=== PATIENT | female | born 2000 | race Caucasian/White ===

== ENCOUNTER 2020-03-31 16:37 | Emergency (ER) | payer OTHER, BC ==
--- NOTE | 2020-03-31 17:58 | XR ---
Result: History: Pain. Comparison: None available. Technique: 3 views of the right ankle. Findings: No acute fracture or dislocation is seen. The visualized osseous structures are in anatomic alignmen t. The talar dome is intact and the ankle mortise is congruent. The joint spaces are preserved. No radiopaque foreign body. Impression: No acute osseous abnormality.
--- NOTE | 2020-03-31 17:59 | XR ---
Result: History: Pain. Comparison: None available. Technique: 4 views of the right wrist. Findings: No acute fracture or dislocation is seen. The visualized osseous structures are in anatomic alignmen t. The joint spaces are preserved. Impression: No acute fracture or dislocation.
--- NOTE | 2020-03-31 18:00 | CT ---
EXAMINATION TYPE: CT brain magda teran con DATE OF EXAM: 03/31/2020 COMPARISON: None available. HISTORY: slip and fall on grease hit head CT DLP: 1630.4 mGycm Automated exposure control for dose reduction was used. TECHNIQUE: CT scan of the head and cervical spine are performed without contrast. FINDINGS: There is no acute intracranial hemorrhage, mass effect, or midline shift identified. The ventricles and sulci are within normal limits in size. The globes are intact and the visualized sin uses are clear. Cervical spine is visualized in its entirety from C1 through upper thoracic levels and demonstrates s atisfactory alignment without evidence of acute fracture or dislocation. Prevertebral soft tissue ap pears within normal limits. The C1-C2 articulation is unremarkable. IMPRESSION: 1. There is no acute fracture or dislocation evident in the cervical spine. 2. No acute intracranial hemorrhage, mass effect, or midline shift is seen.
--- NOTE | 2020-03-31 18:16 | ED ---
General Adult HPI - General Chief complaint: Fall Stated complaint: Fall/IHS/Wrist/Ankle/head injury Time Seen by Provider: 03/31/20 17:03 Source: patient Mode of arrival: ambulatory Limitations: no limitations - History of Present Illness Initial comments: 19-year-old female resents to the emergency department for a chief complaint of fall. Patient states that she was at work when she slipped and fell. Patient hit her head on the ground. She did not lose consciousness. Patient does have slight headache. Denies nausea vomiting. Patient also complaining of mild right wrist and ankle pain. States she can walk on the right ankle but it is somewhat painful. Patient denies any other injuries.Patient has no other complaints at this time including shortness of breath, chest pain, abdominal pain, nausea or vomiting, headache, or visual changes. - Related Data Allergies Allergy/AdvReac Type Severity Reaction Status Date / Time No Known Allergies Allergy Verified 03/31/20 16:53 Review of Systems ROS Statement: Those systems with pertinent positive or pertinent negative responses have been documented in the HPI. ROS Other: All systems not noted in ROS Statement are negative. Past Medical History Past Medical History: No Reported History History of Any Multi-Drug Resistant Organisms: None Reported Past Surgical History: No Surgical Hx Reported Past Psychological History: No Psychological Hx Reported Smoking Status: Never smoker Past Alcohol Use History: None Reported Past Drug Use History: None Reported General Exam - General Exam Comments Initial Comments: Right wrist: Full range of motion of the right wrist over patient does have pain with extension. No scaphoid tenderness. Radial pulses 2+. Capillary refill less than 2 seconds Sensation intact. Some mild tenderness to the posterior right wrist. No edema. [facility] Manager strength out of 5, sensation intact. The right elbow and right shoulder have full range of motion. No tenderness throughout the forearm or humerus. Right ankle: No tenderness to the right foot. Capillary refill less than 2 seconds. Sensation intact. Tenderness to the lateral malleolus of the right ankle. No significant edema or erythema. No tenderness to the proximal tib-fib or thigh. Limitations: no limitations General appearance: alert Head exam: Present: atraumatic (I do not see any evidence of hematomas on the right frontal scalp where patient hit her head.), normal inspection Eye exam: Present: normal appearance, PERRL, EOMI. Absent: scleral icterus, conjunctival injection ENT exam: Present: normal exam, mucous membranes moist Neck exam: Present: normal inspection, full ROM. Absent: tenderness, meningismus, lymphadenopathy Respiratory exam: Present: normal lung sounds bilaterally. Absent: respiratory distress, wheezes, rales, rhonchi, stridor Cardiovascular Exam: Present: regular rate, normal rhythm, normal heart sounds. Absent: systolic murmur, diastolic murmur, rubs, gallop, clicks GI/Abdominal exam: Present: soft, normal bowel sounds. Absent: distended, tenderness, guarding, rebound, rigid Neurological exam: Present: alert, oriented X3, other (GCS 15) Course Vital Signs 03/31/20 16:51 Temperature 98.7 F Pulse Rate 79 Respiratory 16 Rate Blood Pressure 114/65 O2 Sat by Pulse 98 Oximetry Medical Decision Making - Medical Decision Making HPI and physical exam as documented. CT cervical spine shows no acute fracture or dislocation evident. CT brain shows no acute cranial hemorrhage, mass effect, or midline shift. Patient was also complaining of slight ankle pain in the right ankle. Denies any difficulty walking. No acute osseous abnormality noted. X-ray of the right wrist shows no acute fracture or dislocation. No scaphoid tenderness. Right wrist was wrapped in an Roby wrap. Air cast applied to right ankle. Concussion precautions discussed. Patient will take Motrin and Tylenol for pain and follow up with orthopedics if symptoms do not improve in the next 7 days for repeat x-rays. Patient is requesting clearance for work. Disposition Clinical Impression: Fall, Head injury, Ankle pain, right, Wrist pain, right Disposition: HOME SELF-CARE Condition: Good Instructions (If sedation given, give patient instructions): Wrist Injury (ED), Concussion (ED) Additional Instructions: Please take Motrin and Tylenol for pain. Rest ice and elevate the right ankle and wrist. Use Roby wrap and splint as needed. Follow-up with orthopedics if symptoms are not improving within 7 days. Return to the emergency room for any worsening symptoms. Is patient prescribed a controlled substance at d/c from ED?: No Referrals: Noel Mitchell MD [Primary Care Provider] - 1-2 days Anabel Bergman DO [Doctor of Osteopathic Medicine] - 1-2 days Time of Disposition: 18:29
[2020-03-31 19:00] VITALS: BP 119/70; PULSE 97; RESP 18; TEMP 98.4
== END 2020-03-31 19:00 | disposition home or self-care (01) ==
LOC: EC 16:37
DX: S09.90XA Unspecified injury of head, initial encounter (principal); M25.571 Pain in right ankle and joints of right foot; M25.531 Pain in right wrist; W01.0XXA Fall on same level from slipping, tripping and stumbling without subsequent striking against object, initial encounter; Y92.69 Other specified industrial and construction area as the place of occurrence of the external cause; Y99.0 Civilian activity done for income or pay
CPT/HCPCS: 73110; 73610; 72125; 70450; 99284; 29515; L4350

== ENCOUNTER → 2020-04-08 | Outpatient (CLI) | payer BC, OTHER ==
--- NOTE | 2020-04-08 09:48 | XR ---
EXAMINATION TYPE: XR wrist complete RT DATE OF EXAM: 04/08/2020 COMPARISON: NONE HISTORY: 19-year-old female wrist pain after fall TECHNIQUE: 4 views FINDINGS: The radiocarpal and distal radioulnar joint as well as the midcarpal compartment appear intact. On th e navicular view, the scapholunate interval is borderline at 2.0 mm. Otherwise, no acute fracture, musa bluxation, or dislocation is seen. IMPRESSION: 1. Borderline scapholunate interval at 2.0 mm. Correlate for any wrist instability or other clinical findings that would suggest injury to the scapholunate ligament. 2. Otherwise, no acute osseous abnormality seen.
== END | disposition home or self-care (01) ==
LOC: RADXRMAIN 09:11
PROVIDERS: ATTEND Emergency Medicine
DX: S63.501D Unspecified sprain of right wrist, subsequent encounter (principal); M25.531 Pain in right wrist

== ENCOUNTER → 2020-05-05 | Outpatient (CLI) | payer OTHER ==
--- NOTE | 2020-05-05 11:06 | XR ---
EXAMINATION TYPE: XR ankle complete RT DATE OF EXAM: 05/05/2020 COMPARISON: 03/31/2020 HISTORY: Ankle pain, slip and fall TECHNIQUE: Three-view right ankle FINDINGS: No acute fracture or dislocation is evident. Soft tissues are normal. Ankle mortise is inta ct. No significant interval change is evident. Follow-up studies can be performed 7-10 days from acute trauma for continued pain. IMPRESSION: 1. Normal three-view right ankle
== END | disposition home or self-care (01) ==
LOC: RADXRMAIN 10:15
PROVIDERS: ATTEND Emergency Medicine
DX: S93.401D Sprain of unspecified ligament of right ankle, subsequent encounter (principal)

== ENCOUNTER 2020-12-31 09:39 | Observation (INO) | payer BC, OTHER ==
[2020-12-31] MEDS ORDERED: KETOROLAC 15 MG/ML 1 ML VIAL IVP STA (10:19)
[2020-12-31] MEDS ORDERED: SODIUM CHLORIDE 0.9% 1,000 ML IV STA (10:19)
--- NOTE | 2020-12-31 10:35 | ED ---
Abdominal Pain HPI - General Chief Complaint: Abdominal Pain Stated Complaint: abd pain Time Seen by Provider: 12/31/20 10:07 Source: patient, RN notes reviewed Mode of arrival: ambulatory Limitations: no limitations - History of Present Illness Initial Comments: Patient is a 20-year-old female presenting to emergency Department with complaints of abdominal pain, nausea and vomiting over the past 3 days. She states she noticed a stomachache a few days ago, and then started having nausea and vomiting and continued abdominal pain. She describes it as around her mid abdomen with some radiation to the left and lower right side. She denies any previous abdominal surgeries, she denies being . She has been having a few bouts of diarrhea but that is gotten better. She denies any fevers or chills, no chest pain or shortness of breath. She denies any hematuria or dysuria. She has no further complaints. Her vitals are stable upon arrival. - Related Data Home Medications Medication Instructions Recorded Confirmed Levonorgestrel [Kyleena (IUD)] 1 implant VAGINAL [id number] 12/31/20 12/31/20 Previous Rx's Medication Instructions Recorded Acetaminophen [Tylenol] 650 mg PO Q4H #30 tab 01/01/21 Ibuprofen [Motrin] 600 mg PO Q8HR PRN #30 tab 01/01/21 Simethicone 40 mg/0.6 ml Drops 80 mg PO Q6HR PRN #30 ml 01/01/21 [Mylicon Drops] Allergies Allergy/AdvReac Type Severity Reaction Status Date / Time No Known Allergies Allergy Verified 12/31/20 13:00 Review of Systems ROS Statement: Those systems with pertinent positive or pertinent negative responses have been documented in the HPI. ROS Other: All systems not noted in ROS Statement are negative. Past Medical History Past Medical History: No Reported History History of Any Multi-Drug Resistant Organisms: None Reported Past Surgical History: No Surgical Hx Reported Past Psychological History: No Psychological Hx Reported Smoking Status: Never smoker Past Alcohol Use History: None Reported Past Drug Use History: None Reported - Past Family History Mother History Unknown: Yes General Exam - General Exam Comments Initial Comments: GENERAL: Patient is well-developed and well-nourished. Patient is nontoxic and in no acute distress. HEAD: Atraumatic, normocephalic. EYES: Pupils equal round and reactive to light, extraocular movements intact, sclera anicteric, conjunctiva are normal. Eyelids were unremarkable. ENT: Nares patent, oropharynx clear without exudates. Moist mucous membranes. NECK: Normal range of motion, supple without lymphadenopathy or JVD. LUNGS: Unlabored respirations. Breath sounds clear to auscultation bilaterally and equal. No wheezes rales or rhonchi. HEART: Regular rate and rhythm without murmurs, rubs or gallops. ABDOMEN: Soft, tender to palpation around the umbilical area, left and right lower quadrants., normoactive bowel sounds. No guarding, no rebound. No masses appreciated. : Deferred MUSCULOSKELETAL: Normal extremities with adequate strength and normal range of motion, no pitting or edema. No clubbing or cyanosis. NEUROLOGICAL: Patient is alert and oriented x 3. Normal speech, normal gait. PSYCH: Normal mood, normal affect. SKIN: Warm, Dry, normal turgor, no rashes or lesions noted. Limitations: no limitations Course Vital Signs 12/31/20 12/31/20 10:03 13:37 Temperature 98.4 F 97.3 F L Pulse Rate 90 83 Respiratory 16 16 Rate Blood Pressure 118/79 123/79 O2 Sat by Pulse 98 98 Oximetry Medical Decision Making - Medical Decision Making Patient is a 20-year-old female presenting with abdominal pain, nausea, vomiting, diarrhea over the past 3 days. No previous abdominal surgeries, no fevers, her vitals are stable. Labs reveal a normal white count, urine showed evidence of infection. CT of the abdomen shows an appendix that measures 6 mm in upper limits of normal, there is an appendicolith caught the tip of the appendix. Early appendicitis would be difficult to exclude. I discussed this case with Dr. Lynn who agrees to admission. Patient is also in agreement with this plan of care. Case discussed with Dr. Lopez. - Lab Data Result diagrams: 12/31/20 10:49 12/31/20 10:49 Lab Results 12/31/20 12/31/20 12/31/20 Range/Units 10:49 10:49 10:49 WBC 10.5 (3.8-10.6) k/uL RBC 4.87 (3.80-5.40) m/uL Hgb 15.0 (11.4-16.0) gm/dL Hct 44.0 (34.0-46.0) % MCV 90.3 (80.0-100.0) fL MCH 30.7 (25.0-35.0) pg MCHC 34.0 (31.0-37.0) g/dL RDW 12.4 (11.5-15.5) % Plt Count 228 (150-450) k/uL MPV 7.5 Neutrophils % 74 % Lymphocytes % 19 % Monocytes % 4 % Eosinophils % 1 % Basophils % 0 % Neutrophils # 7.8 H (1.3-7.7) k/uL Lymphocytes # 2.0 (1.0-4.8) k/uL Monocytes # 0.4 (0-1.0) k/uL Eosinophils # 0.1 (0-0.7) k/uL Basophils # 0.0 (0-0.2) k/uL Sodium (137-145) mmol/L Potassium (3.5-5.1) mmol/L Chloride (98-107) mmol/L Carbon Dioxide (22-30) mmol/L Anion Gap mmol/L BUN (7-17) mg/dL Creatinine (0.52-1.04) mg/dL Est GFR (CKD-EPI)AfAm (>60 ml/min/1.73 sqM) Est GFR (CKD-EPI)NonAf (>60 ml/min/1.73 sqM) Glucose (74-99) mg/dL Plasma Lactic Acid Román (0.7-2.0) mmol/L Calcium (8.4-10.2) mg/dL Total Bilirubin (0.2-1.3) mg/dL AST (14-36) U/L ALT (4-34) U/L Alkaline Phosphatase (38-126) U/L Total Protein (6.3-8.2) g/dL Albumin (3.5-5.0) g/dL Amylase (30-110) U/L Lipase (23-300) U/L Urine Color Yellow Urine Appearance Cloudy H (Clear) Urine pH 6.0 (5.0-8.0) Ur Specific Notrees 1.027 (1.001-1.035) Urine Protein Trace H (Negative) Urine Glucose (UA) Negative (Negative) Urine Ketones Negative (Negative) Urine Blood Negative (Negative) Urine Nitrite Negative (Negative) Urine Bilirubin Negative (Negative) Urine Urobilinogen 2.0 (<2.0) mg/dL Ur Leukocyte Esterase Large H (Negative) Urine RBC 8 H (0-5) /hpf Urine WBC 7 H (0-5) /hpf Ur Squamous Epith Cells 8 H (0-4) /hpf Amorphous Sediment Rare H (None) /hpf Urine Bacteria Occasional H (None) /hpf Urine Mucus Many H (None) /hpf Urine HCG, Qual Not Detected (Not Detectd) 12/31/20 12/31/20 Range/Units 10:49 10:49 WBC (3.8-10.6) k/uL RBC (3.80-5.40) m/uL Hgb (11.4-16.0) gm/dL Hct (34.0-46.0) % MCV (80.0-100.0) fL MCH (25.0-35.0) pg MCHC (31.0-37.0) g/dL RDW (11.5-15.5) % Plt Count (150-450) k/uL MPV Neutrophils % % Lymphocytes % % Monocytes % % Eosinophils % % Basophils % % Neutrophils # (1.3-7.7) k/uL Lymphocytes # (1.0-4.8) k/uL Monocytes # (0-1.0) k/uL Eosinophils # (0-0.7) k/uL Basophils # (0-0.2) k/uL Sodium 138 (137-145) mmol/L Potassium 4.1 (3.5-5.1) mmol/L Chloride 104 (98-107) mmol/L Carbon Dioxide 23 (22-30) mmol/L Anion Gap 11 mmol/L BUN 15 (7-17) mg/dL Creatinine 0.56 (0.52-1.04) mg/dL Est GFR (CKD-EPI)AfAm >90 (>60 ml/min/1.73 sqM) Est GFR (CKD-EPI)NonAf >90 (>60 ml/min/1.73 sqM) Glucose 104 H (74-99) mg/dL Plasma Lactic Acid Román 1.0 (0.7-2.0) mmol/L Calcium 9.5 (8.4-10.2) mg/dL Total Bilirubin 0.7 (0.2-1.3) mg/dL AST 21 (14-36) U/L ALT 19 (4-34) U/L Alkaline Phosphatase 91 (38-126) U/L Total Protein 6.9 (6.3-8.2) g/dL Albumin 4.6 (3.5-5.0) g/dL Amylase 58 (30-110) U/L Lipase 59 (23-300) U/L Urine Color Urine Appearance (Clear) Urine pH (5.0-8.0) Ur Specific Notrees (1.001-1.035) Urine Protein (Negative) Urine Glucose (UA) (Negative) Urine Ketones (Negative) Urine Blood (Negative) Urine Nitrite (Negative) Urine Bilirubin (Negative) Urine Urobilinogen (<2.0) mg/dL Ur Leukocyte Esterase (Negative) Urine RBC (0-5) /hpf Urine WBC (0-5) /hpf Ur Squamous Epith Cells (0-4) /hpf Amorphous Sediment (None) /hpf Urine Bacteria (None) /hpf Urine Mucus (None) /hpf Urine HCG, Qual (Not Detectd) Disposition Clinical Impression: Acute appendicitis Disposition: ADMITTED IP TO THIS [facility] Condition: Stable Decision Date: 12/31/20 Decision Time: 12:48
[2020-12-31] MEDS: ONDANSETRON 4 MG/2 ML VIAL IVP STA (11:03)
[2020-12-31 11:04] LABS: Basophils % (A) 0 %; Eosinophils # (A) 0.1 k/uL (0-0.7); Eosinophils % (A) 1 %; Lymphocytes % (A) 19 %; MCH 30.7 pg (25.0-35.0); MCV 90.3 fL (80.0-100.0); Mean Platelet Volume 7.5; Monocytes # (A) 0.4 k/uL (0-1.0); Monocytes % (A) 4 %; Neutrophils # (A) 7.8 k/uL (1.3-7.7); Neutrophils % (A) 74 %; Platelet Count 228 k/uL (150-450); RBC 4.87 m/uL (3.80-5.40); RDW 12.4 % (11.5-15.5); WBC 10.5 k/uL (3.8-10.6)
[2020-12-31 11:29] LABS: Amorphous Sediment,Urine Rare /hpf; Appearance,Urine Cloudy (Clear); Bacteria,Urine Occasional /hpf; Bilirubin,Urine Negative (Negative); Blood,Urine Negative (Negative); Color,Urine Yellow; Glucose,Urine (UA) Negative (Negative); Ketones,Urine Negative (Negative); Leukocyte Esterase,Urine Large (Negative); Mucus,Urine Many /hpf; Nitrite,Urine Negative (Negative); Protein,Urine Trace (Negative); RBC,Urine 8 /hpf (0-5); Specific Gravity,Urine 1.027 (1.001-1.035); Squamous Epithelial Cell,Urine 8 /hpf (0-4); WBC,Urine 7 /hpf (0-5)
[2020-12-31 11:59] LABS: ALT 19 U/L (4-34); AST 21 U/L (14-36); African American GFR (CKD) >90 (>60 ml/min/1.73 sqM); Albumin 4.6 g/dL (3.5-5.0); Alkaline Phosphatase 91 U/L (38-126); Amylase 58 U/L (30-110); Anion Gap 11 mmol/L; Blood Urea Nitrogen 15 mg/dL (7-17); Calcium 9.5 mg/dL (8.4-10.2); Carbon Dioxide 23 mmol/L (22-30); Chloride 104 mmol/L (98-107); Glucose 104 mg/dL (74-99); Lipase 59 U/L (23-300); Non-African American GFR(CKD) >90 (>60 ml/min/1.73 sqM); Potassium 4.1 mmol/L (3.5-5.1); Sodium 138 mmol/L (137-145); Total Bilirubin 0.7 mg/dL (0.2-1.3); Total Protein 6.9 g/dL (6.3-8.2)
--- NOTE | 2020-12-31 12:00 | CT ---
EXAMINATION TYPE: CT abdomen pelvis w con DATE OF EXAM: 12/31/2020 COMPARISON: None HISTORY: generalized pain CT DLP: 1395.4 mGycm Automated exposure control for dose reduction was used. CONTRAST: CT scan of the abdomen pelvis is performed with IV Contrast, patient injected with 100 mL of Isovue 3 00. FINDINGS- LUNG BASES- No significant abnormality is appreciated. LIVER/GB-area of low attenuation in the left lobe of the liver next to the ligamentum teres nonspecif ic but likely related to focal area of fatty infiltration. No gallstones. PANCREAS- No gross abnormality is seen. SPLEEN- No gross abnormality is seen. ADRENALS- No gross abnormality is seen. KIDNEYS/BLADDER- no hydronephrosis nephrolithiasis or renal mass. BOWEL-bowel gas pattern nonspecific. Appendix measures 6 mm and there does appear to be a small appen dicolith on coronal image 53.. LYMPH NODES- No greater than 1cm abdominal or pelvic lymph nodes are appreciated. Scattered shotty l ymph nodes are seen in the mesentery. OSSEOUS STRUCTURES- No significant abnormality is seen. OTHER- IUD incidentally noted . Aorta of normal caliber. IMPRESSION- 1. Appendix measures 6 mm and is at the upper limits of normal. However, there is a appendicolith at the tip of the appendix. Early appendicitis would be difficult to exclude correlate clinically. There does not appear to be a sizable amount inflammatory change in the right lower quadrant. Additionally there are scattered shotty lymph nodes in the mesentery correlate for mesenteric adenitis. 2. Localized fatty infiltration left lobe of the liver.
[2020-12-31] MEDS ORDERED: NALOXONE 0.4 MG/ML 1 ML VIAL IV PRN (12:45)
[2020-12-31] MEDS ORDERED: ONDANSETRON 4 MG/2 ML VIAL IVP PRN (12:45)
[2020-12-31] MEDS ORDERED: MORPHINE SULFATE 4 MG/ML SYRINGE IV PRN (12:45)
[2020-12-31] MEDS: SODIUM CHLORIDE 0.9% 1,000 ML IV SCH ×2 (13:25→19:22)
--- NOTE | 2020-12-31 14:40 | P.GSHP ---
History of Present Illness The patient is admitted through ED with abdominal pain. CT showed appendicolith so was admitted for observation. On my arrival the patient requested a different surgeon Past Medical History Past Medical History: No Reported History History of Any Multi-Drug Resistant Organisms: None Reported Past Surgical History: Tonsillectomy Past Anesthesia/Blood Transfusion Reactions: No Reported Reaction Past Psychological History: No Psychological Hx Reported, ADD/ADHD Additional Psychological History / Comment(s): adderall Smoking Status: Never smoker Past Alcohol Use History: None Reported Past Drug Use History: None Reported - Past Family History Mother History Unknown: Yes Medications and Allergies Home Medications Medication Instructions Recorded Confirmed Type Levonorgestrel [Kyleena (IUD)] 1 implant VAGINAL [id number] 12/31/20 12/31/20 History Allergies Allergy/AdvReac Type Severity Reaction Status Date / Time No Known Allergies Allergy Verified 12/31/20 13:00 Surgical - Exam Osteopathic Statement: *. No significant issues noted on an osteopathic structural exam other than those noted in the History and Physical/Consult. Vital Signs Temp Pulse Resp BP Pulse Ox 98.4 F 90 16 118/79 98 12/31/20 10:03 12/31/20 10:03 12/31/20 10:03 12/31/20 10:03 12/31/20 10:03 Results - Labs 12/31/20 10:49 12/31/20 10:49 Abnormal Lab Results - Last 24 Hours (Table) 12/31/20 12/31/20 12/31/20 Range/Units 10:49 10:49 10:49 Neutrophils # 7.8 H (1.3-7.7) k/uL Glucose 104 H (74-99) mg/dL Urine Appearance Cloudy H (Clear) Urine Protein Trace H (Negative) Ur Leukocyte Esterase Large H (Negative) Urine RBC 8 H (0-5) /hpf Urine WBC 7 H (0-5) /hpf Ur Squamous Epith Cells 8 H (0-4) /hpf Amorphous Sediment Rare H (None) /hpf Urine Bacteria Occasional H (None) /hpf Urine Mucus Many H (None) /hpf Diabetes panel 12/31/20 Range/Units 10:49 Sodium 138 (137-145) mmol/L Potassium 4.1 (3.5-5.1) mmol/L Chloride 104 (98-107) mmol/L Carbon Dioxide 23 (22-30) mmol/L BUN 15 (7-17) mg/dL Creatinine 0.56 (0.52-1.04) mg/dL Glucose 104 H (74-99) mg/dL Calcium 9.5 (8.4-10.2) mg/dL AST 21 (14-36) U/L ALT 19 (4-34) U/L Alkaline Phosphatase 91 (38-126) U/L Total Protein 6.9 (6.3-8.2) g/dL Albumin 4.6 (3.5-5.0) g/dL Calcium panel 12/31/20 Range/Units 10:49 Calcium 9.5 (8.4-10.2) mg/dL Albumin 4.6 (3.5-5.0) g/dL Pituitary panel 12/31/20 Range/Units 10:49 Sodium 138 (137-145) mmol/L Potassium 4.1 (3.5-5.1) mmol/L Chloride 104 (98-107) mmol/L Carbon Dioxide 23 (22-30) mmol/L BUN 15 (7-17) mg/dL Creatinine 0.56 (0.52-1.04) mg/dL Glucose 104 H (74-99) mg/dL Calcium 9.5 (8.4-10.2) mg/dL Adrenal panel 12/31/20 Range/Units 10:49 Sodium 138 (137-145) mmol/L Potassium 4.1 (3.5-5.1) mmol/L Chloride 104 (98-107) mmol/L Carbon Dioxide 23 (22-30) mmol/L BUN 15 (7-17) mg/dL Creatinine 0.56 (0.52-1.04) mg/dL Glucose 104 H (74-99) mg/dL Calcium 9.5 (8.4-10.2) mg/dL Total Bilirubin 0.7 (0.2-1.3) mg/dL AST 21 (14-36) U/L ALT 19 (4-34) U/L Alkaline Phosphatase 91 (38-126) U/L Total Protein 6.9 (6.3-8.2) g/dL Albumin 4.6 (3.5-5.0) g/dL Assessment and Plan Plan: Will arrange transfer of admission to hospitalist
--- NOTE | 2020-12-31 16:09 | P.CONS ---
History of Present Illness - Reason for Consult Consult date: 12/31/20 - Chief Complaint Abdominal pain - History of Present Illness 20-year-old woman with obesity class II present with abdominal pain. Patient says that she has been having abdominal pain for 2 days. She denies any fevers, chills, nausea, vomiting, chest pain, palpitations, syncope, presyncope, brenton rtness of breath, cough, dysuria. She does report diarrhea. Patient was seen by surgeon youth corrections officer, Dr. Lynn, however, patient immediately requested a different surgeon as primary. Hospital service was asked to get involved as a customer service consultant and mediary. Dr. Jackson kindly offered to take over primary service tomorrow morning. Patient is afebrile, normotensive, saturating well on room air. Labs and imaging were reviewed. CT of the abdomen/pelvis shows early appendicitis with the fecalith at the tip of the appendix. Review of Systems All Systems reviewed and pertinent positives and negatives noted in HPI, all other symptoms are negative Past Medical History Past Medical History: No Reported History History of Any Multi-Drug Resistant Organisms: None Reported Past Surgical History: Tonsillectomy Past Anesthesia/Blood Transfusion Reactions: No Reported Reaction Past Psychological History: No Psychological Hx Reported, ADD/ADHD Additional Psychological History / Comment(s): adderall Smoking Status: Never smoker Past Alcohol Use History: None Reported Past Drug Use History: None Reported - Past Family History Mother History Unknown: Yes Medications and Allergies Home Medications Medication Instructions Recorded Confirmed Type Levonorgestrel [Kyleena (IUD)] 1 implant VAGINAL [id number] 12/31/20 12/31/20 Histo ry Allergies Allergy/AdvReac Type Severity Reaction Status Date / Time No Known Allergies Allergy Verified 12/31/20 13:00 Physical Exam Osteopathic Statement: *. No significant issues noted on an osteopathic structural exam other than those noted in the History and Physical/Consult. Vitals: Vital Signs Temp Pulse Pulse Resp BP BP Pulse Ox 12/31/20 13:44 98.3 F 69 16 107/70 97 12/31/20 13:37 97.3 F L 83 16 123/79 98 12/31/20 10:03 98.4 F 90 16 118/79 98 Intake and Output 12/31/20 12/31/20 12/31/20 06:59 14:59 22:59 Other: Weight 94.5 kg Gen: awake, alert HEENT: normocephalic, atraumatic, good hearing acuity, moist mucous membranes Resp: good air exchange, breathing comfortably with no accessory muscle use, clear to auscultation bilaterally CVS: good distal perfusion x 4, regular rate and rhythm without murmurs GI: Tender to palpation the right lower quadrant, no rebound, no guarding : no SPT, no CVAT, sheth catheter not present MSK: no pitting edema, no clubbing Neuro: non-focal, moving all extremities Psych: cooperative, euthymic mood Results CBC & Chem 7: 12/31/20 10:49 12/31/20 10:49 Labs: Abnormal Lab Results - Last 24 Hours (Table) 12/31/20 12/31/20 12/31/20 Range/Units 10:49 10:49 10:49 Neutrophils # 7.8 H (1.3-7.7) k/uL Glucose 104 H (74-99) mg/dL Urine Appearance Cloudy H (Clear) Urine Protein Trace H (Negative) Ur Leukocyte Esterase Large H (Negative) Urine RBC 8 H (0-5) /hpf Urine WBC 7 H (0-5) /hpf Ur Squamous Epith Cells 8 H (0-4) /hpf Amorphous Sediment Rare H (None) /hpf Urine Bacteria Occasional H (None) /hpf Urine Mucus Many H (None) /hpf Assessment and Plan Assessment: Appendicitis, acute -Management per primary team -Pain control per primary team -Hold DVT prophylaxis in anticipation of surgery -Nothing by mouth -Zosyn Obesity, class II -Recommend weight loss evaluation outpatient -Diet and exercise counseling Patient is full code Thank you for this consultation. A member of our team is available 09/10 in case of any arising issues or if there are any questions. Please reach out to one of us via perfect serve.
[2020-12-31] MEDS: PIPERACILLIN-TAZOBACTAM 3.375 GM in SODIUM CHLORIDE 0.9% 100 ML IVPB SCH (16:40)
[2020-12-31] MEDS: KETOROLAC 15 MG/ML 1 ML VIAL IVP PRN (19:21)
[2021-01-01] MEDS: PIPERACILLIN-TAZOBACTAM 3.375 GM in SODIUM CHLORIDE 0.9% 100 ML IVPB SCH ×2 (00:22→08:05)
[2021-01-01] MEDS: KETOROLAC 15 MG/ML 1 ML VIAL IVP PRN (08:05)
[2021-01-01] MEDS: SODIUM CHLORIDE 0.9% 1,000 ML IV SCH (08:06)
[2021-01-01 08:11] VITALS: RESP 16
--- NOTE | 2021-01-01 09:38 | P.GSCN ---
History of Present Illness Consult date: 01/01/21 History of present illness: CHIEF COMPLAINT: Right lower quadrant abdominal pain for over 2 to 3 days. HISTORY OF PRESENT ILLNESS: The patient is a previously healthy 20-year-old female who presents with over 2 day history of bilateral lower abdominal pain that is intermittent and crampy dull ache in nature. No reports of prior abdominal pain. She states the intensity of the pain is moderate and comes in intermittent waves. Abdominal pain is somewhat subsided with pain medications. She had further workup demonstrating appendicolith. Patient is admitted for abdominal pain with suspected appendicitis PAST MEDICAL HISTORY: See list and reviewed PAST SURGICAL HISTORY: See list and reviewed CURRENT MEDICATIONS: See list and reviewed ALLERGIES: See list and reviewed SOCIAL HISTORY: See list and reviewed FAMILY HISTORY: See list and reviewed REVIEW OF ORGAN SYSTEMS: CONSTITUTIONAL: Present fever, no chills. BMI 39.4, morbid obesity. HEENT: Denies any trouble with vision, hearing or nosebleeds. No difficulty swallowing. LYMPHATIC: The patient denies any lumps and bumps around the neck. ENDOCRINE: Denies any thyroid disorders. Denies any blood sugar glucose intolerance. RESPIRATORY: Denies shortness of breath including chronic cough. CARDIOVASCULAR: Denies history of chest pain with exertion. GASTROINTESTINAL: Denies regurgitation of bile at night as well as intermittent nausea. No blood in stools. GENITOURINARY: Denies any blood in urine or increased urinary frequency. Last menstrual cycle June 2019 due to intrauterine device. MUSCULOSKELETAL: Denies current joint arthritis. NEUROLOGIC: Denies any numbness or tingling along the distal extremities. No seizure disorders or headaches. PSYCHIATRIC: Denies any depression or suicidal ideation. HEMATOLOGIC: Denies any abnormal bleeding or bruising. PHYSICAL EXAMINATION: GENERAL: A 20-year-old female in no acute distress. Pleasant. HEENT: No sclera icterus. Extraocular movements grossly intact. Moist buccal mucosa. Head is atraumatic, normocephalic. Hears conversational speech. No nasal drainage. NECK: Supple without lymphadenopathy. No JV distention. CHEST: Non-labored respirations and equal bilateral excursions. CARDIOVASCULAR: Regular rate and rhythm. Palpable 2+ radial pulses. ABDOMEN: Protuberant, soft, increased tenderness right lower quadrant versus left lower quadrant. No diffuse peritonitis. MUSCULOSKELETAL: No clubbing, cyanosis or edema. NEUROLOGIC: No focal or lateralizing signs. PSYCH: Flat affect. Alert and oriented to person, place and time. SKIN: Well perfused. Good skin turgor. LABS: Reviewed. White blood cell count normal at 10.5. Left shift with elevated neutrophils are 0.8. COVID-19 negative. STUDIES: CT of the abdomen and pelvis with IV contrast independently reviewed demonstrating appendicolith along the tip of the appendix right lower quadrant. Decompression of the descending colon with questionable wall thickening. No gross inflammatory changes noted. Intrauterine device identified. This is my independent interpretation. REPORT: CT of the abdomen and pelvis report confirms appendicolith. Early appendicitis cannot be excluded. Possible mesenteric adenitis identified. Fatty liver identified. ASSESSMENT: 1. Bilateral lower abdominal pain, right greater than left 2. Abnormal computed tomography scan for appendicolith and mesenteric adenitis 3. Morbid obesity due to excess calories, BMI 39.4 4. Fatty liver disease 5. Neutrophilia PLAN: 1. I reviewed options including surgical intervention with appendectomy as an appendicolith is present versus IV antibiotics versus nothing at all. Patient's mother was on the telephone guiding the patient's decision. Patient and mother elected for appendectomy. 2. Robotic appendectomy described. 3. Bilateral SCDs. 4. Continue IV antibiotics for pre-existing left shift, neutrophilia Thank you very much for allowing me to participate in the care of your patient. Past Medical History Past Medical History: No Reported History History of Any Multi-Drug Resistant Organisms: None Reported Past Surgical History: Tonsillectomy Past Anesthesia/Blood Transfusion Reactions: No Reported Reaction Past Psychological History: No Psychological Hx Reported, ADD/ADHD Additional Psychological History / Comment(s): adderall Smoking Status: Never smoker Past Alcohol Use History: None Reported Past Drug Use History: None Reported - Past Family History Mother History Unknown: Yes Medications and Allergies Home Medications Medication Instructions Recorded Confirmed Type Levonorgestrel [Kyleena (IUD)] 1 implant VAGINAL [id number] 12/31/20 12/31/20 History Allergies Allergy/AdvReac Type Severity Reaction Status Date / Time No Known Allergies Allergy Verified 12/31/20 13:00 Surgical - Exam Vital Signs Temp Pulse Resp BP Pulse Ox 98.4 F 90 16 118/79 98 12/31/20 10:03 12/31/20 10:03 12/31/20 10:03 12/31/20 10:03 12/31/20 10:03 Results - Labs 12/31/20 10:49 12/31/20 10:49 Abnormal Lab Results - Last 24 Hours (Table) 12/31/20 12/31/20 12/31/20 Range/Units 10:49 10:49 10:49 Neutrophils # 7.8 H (1.3-7.7) k/uL Glucose 104 H (74-99) mg/dL Urine Appearance Cloudy H (Clear) Urine Protein Trace H (Negative) Ur Leukocyte Esterase Large H (Negative) Urine RBC 8 H (0-5) /hpf Urine WBC 7 H (0-5) /hpf Ur Squamous Epith Cells 8 H (0-4) /hpf Amorphous Sediment Rare H (None) /hpf Urine Bacteria Occasional H (None) /hpf Urine Mucus Many H (None) /hpf Diabetes panel 12/31/20 Range/Units 10:49 Sodium 138 (137-145) mmol/L Potassium 4.1 (3.5-5.1) mmol/L Chloride 104 (98-107) mmol/L Carbon Dioxide 23 (22-30) mmol/L BUN 15 (7-17) mg/dL Creatinine 0.56 (0.52-1.04) mg/dL Glucose 104 H (74-99) mg/dL Calcium 9.5 (8.4-10.2) mg/dL AST 21 (14-36) U/L ALT 19 (4-34) U/L Alkaline Phosphatase 91 (38-126) U/L Total Protein 6.9 (6.3-8.2) g/dL Albumin 4.6 (3.5-5.0) g/dL Calcium panel 12/31/20 Range/Units 10:49 Calcium 9.5 (8.4-10.2) mg/dL Albumin 4.6 (3.5-5.0) g/dL Pituitary panel 12/31/20 Range/Units 10:49 Sodium 138 (137-145) mmol/L Potassium 4.1 (3.5-5.1) mmol/L Chloride 104 (98-107) mmol/L Carbon Dioxide 23 (22-30) mmol/L BUN 15 (7-17) mg/dL Creatinine 0.56 (0.52-1.04) mg/dL Glucose 104 H (74-99) mg/dL Calcium 9.5 (8.4-10.2) mg/dL Adrenal panel 12/31/20 Range/Units 10:49 Sodium 138 (137-145) mmol/L Potassium 4.1 (3.5-5.1) mmol/L Chloride 104 (98-107) mmol/L Carbon Dioxide 23 (22-30) mmol/L BUN 15 (7-17) mg/dL Creatinine 0.56 (0.52-1.04) mg/dL Glucose 104 H (74-99) mg/dL Calcium 9.5 (8.4-10.2) mg/dL Total Bilirubin 0.7 (0.2-1.3) mg/dL AST 21 (14-36) U/L ALT 19 (4-34) U/L Alkaline Phosphatase 91 (38-126) U/L Total Protein 6.9 (6.3-8.2) g/dL Albumin 4.6 (3.5-5.0) g/dL Assessment and Plan (1) Appendicolith Current Visit: Yes Status: Acute Code(s): K38.9 - DISEASE OF APPENDIX, UNSPECIFIED SNOMED Code(s): 00736159 (2) Morbid obesity due to excess calories Current Visit: Yes Status: Acute Code(s): E66.01 - MORBID (SEVERE) OBESITY DUE TO EXCESS CALORIES SNOMED Code(s): 406334765 (3) BMI 39.0-39.9,adult Current Visit: Yes Status: Acute Code(s): Z68.39 - BODY MASS INDEX [BMI] 39.0-39.9, ADULT SNOMED Code(s): 678027808 (4) Fatty liver disease, nonalcoholic Current Visit: Yes Status: Acute Code(s): K76.0 - FATTY (CHANGE OF) LIVER, NOT ELSEWHERE CLASSIFIED SNOMED Code(s): 833165223 (5) Mesenteric adenitis Current Visit: Yes Status: Acute Code(s): I88.0 - NONSPECIFIC MESENTERIC LYMPHADENITIS SNOMED Code(s): 97150505 (6) Neutrophilia Current Visit: Yes Status: Acute Code(s): D72.9 - DISORDER OF WHITE BLOOD CELLS, UNSPECIFIED SNOMED Code(s): 483041277 (7) Intrauterine device Current Visit: Yes Status: Acute Code(s): Z97.5 - PRESENCE OF (INTRAUTERINE) CONTRACEPTIVE DEVICE SNOMED Code(s): 179409395 (8) Acute appendicitis Current Visit: Yes Status: Acute Code(s): K35.80 - UNSPECIFIED ACUTE APPENDICITIS SNOMED Code(s): 01382469
[2021-01-01] MEDS ORDERED: ACETAMINOPHEN TAB 500 MG TAB PO STA (09:42)
[2021-01-01] MEDS ORDERED: SCOPOLAMINE 1.5MG/72HR PATCH TRANSDERM STA (09:42)
[2021-01-01] MEDS ORDERED: HEPARIN SODIUM,PORCINE/PF 5,000 UNIT/0.5 ML SYRINGE SQ SCH (10:00)
[2021-01-01] MEDS: ONDANSETRON 4 MG/2 ML VIAL IVP STA (10:59)
[2021-01-01] MEDS ORDERED: DEXAMETHASONE SOD PHOSPHATE 4 MG/ML 1 ML VIAL IV ONE (10:59)
[2021-01-01] MEDS ORDERED: IV FLUID CONTINUATION 1,000 ML IV ONE (11:00)
[2021-01-01] MEDS ORDERED: SCOPOLAMINE 1.5MG/72HR PATCH TRANSDERM ONE (11:05)
[2021-01-01] MEDS ORDERED: NEOSTIGMINE 1 MG/ML 10 ML VIAL ONE (11:24)
[2021-01-01] MEDS ORDERED: PROPOFOL 10 MG/ML 20 ML VIAL IV ONE (11:24)
[2021-01-01] MEDS ORDERED: fentaNYL (PF) 50 MCG/ML 2 ML AMP ONE (11:24)
[2021-01-01] MEDS ORDERED: GLYCOPYRROLATE 0.2 MG/ML 2 ML VIAL ONE (11:24)
[2021-01-01] MEDS ORDERED: LIDOCAINE 1% INJ 10MG/ML (20 ML MDV) ONE (11:24)
[2021-01-01] MEDS ORDERED: SUCCINYLCHOLINE CHLORIDE 100 MG/5 ML SYR IV ONE (11:24)
[2021-01-01] MEDS ORDERED: ROCURONIUM 10 MG/ML (5 ML VIAL) IV ONE (11:24)
[2021-01-01] MEDS ORDERED: MIDAZOLAM 2 MG/2 ML VIAL ONE (11:24)
[2021-01-01] MEDS ORDERED: LIDOCAINE 1%-EPI 1:100,000 20 ML VIAL SQ ONE (11:43)
[2021-01-01 12:29] VITALS: TEMP 97.8
[2021-01-01] MEDS ORDERED: ACETAMINOPHEN TAB 325 MG TAB PO SCH (12:30)
[2021-01-01] MEDS ORDERED: LACTATED RINGERS 1,000 ML IV ONE (12:34)
--- NOTE | 2021-01-01 12:43 | P.OP ---
Date of Procedure: 01/01/21 Description of Procedure: SURGEON: KATHERINE CHAKRABORTY MD Preoperative Diagnosis: 1. Right lower quadrant abdominal pain 2. Left lower quadrant abdominal pain including periumbilical pain 3. Abnormal CT for appendicolith 4. Acute appendicitis 5. Morbid obesity due to excess calories, BMI 39.4 Postoperative Diagnosis: 1. Right lower quadrant abdominal pain 2. Left lower quadrant abdominal pain including periumbilical pain 3. Abnormal CT for appendicolith 4. Acute appendicitis 5. Morbid obesity due to excess calories, BMI 39.4 6. Small bowel Meckel's diverticulum at ileum Procedure(s) Performed: 1. Robotic-assisted daVinci Xi laparoscopic appendectomy 2. Robotic-assisted daVinci Xi laparoscopic small bowel resection of Meckel's diverticulum Anesthesia: GETA, local Estimated Blood Loss (ml): 5 Pathology: other (appendix and Meckel's diverticulum) Condition: stable Disposition: floor Operative Findings: 1. Dilated tip of appendix with appendicolith 2. No creeping mesenteric fat or signs of small bowel Crohn's disease 3. Cecum unremarkable 4. Identification of Meckel's diverticulum consistent with abdominal pain and consent obtained from mother for excision. 5. Meckel's diverticulum of 2 inches identified within 2 feet of the ileocecal valve INDICATIONS: The patient is a 20-year-old male who presents with 2-3 day of periumbilical pain including bilateral lower abdominal pain. She presented with leukocytosis. Diagnostic studies demonstrated appendicolith. Benefits and risks, including infection, open surgery, and bleeding for additional surgery was discussed at length. Informed consent was obtained. All questions of the patient and family were answered. DESCRIPTION: The patient was transferred to the operating room and placed in supine position. The patient had previously voided. The abdomen was then prepped and draped in standard sterile fashion as Ioban was placed along the abdomen to minimize any contamination of skin floor. After a timeout protocol was performed, attention was then brought to the left upper quadrant whereby a 0 degree 5 mm laparoscopic trocar entry was performed. The abdominal cavity was entered and insufflated to 12 mmHg pressure, which was tolerated well. Diagnostic laparoscopy demonstrated no injury to bowel, viscera or mesentery. Next a robotic 8-mm trocar was placed along the left lower quadrant, 10-cm lateral to the midline. A 12 mm port was placed along the left upper quadrant and another 8-mm port left lateral abdominal wall. Ports were placed 8 cm apart from each other including 15-20 cm away from the target anatomy of the right pelvis. The patient was then placed in Trendelenburg position, at least 7 down and right side up at least 7. The robotic da Jayna XI system was primed and docked from the left side of the patient. Using atraumatic graspers and vessel sealer, the robotic system was docked and primed as described. Instruments were interchanged by the records management assistant including graspers, robotic stapler and vessel sealer. Next, attention was brought to identify the cecum. A systematic view within the abdominal cavity was started with the small bowel where Meckel's diverticulum at the umbilical area was identified 2 feet proximal to the ileocecal valve. No creeping mesenteric fat or signs of Crohn's disease of the small bowel was found. The base of the cecum was unremarkable. No inguinal hernias were identified. The appendix tip was dilated with appendicolith identified along the right lower quadrant. No perforation was identified. The appendix was dissected free with division of the mesial appendix using vessel sealer. Blue 45 mm robotic staple loads were fired along the base of the appendix. The staple line was hemostatic. With the finding of Meckel's diverticulum including patient's area of abdominal pain, I went to the patient's mother for additional consent for excision of her Meckel's diverticulum. Benefits and risks of diverticulum excision was described with intraoperative images reviewed and education of Meckel's diverticulum. Mother also gives additional history of pre-existing intermittent abdominal pain in the past consistent with symptomatic Meckel's diverticulum. After initial informed consent, I sat at the console. The diverticulum was prepared for excision using 45 mm blue robotic staple load. The diverticulum was excised across its base and hemostatic. Specimens of the appendix and diverticulum were placed in the Endo Catch bag by the records management assistant. Hemostasis was checked prior to undocking the robot. The robot was undocked. I re-scrubbed into the case. The specimen was removed from the abdominal cavity with an Endo Catch bag through the 12 mm trocar at the left upper quadrant. All instruments and pneumoperitoneum were evacuated from the abdominal cavity. Local anesthetic was infiltrated to all wounds for postop analgesia. All incisions were also cleansed with diluted hydrogen peroxide. The incisions were closed with 4-0 Monocryl. Exofin glue was applied to the rest of the skin incisions. The patient had tolerated the procedure well. The patient was extubated successfully. The patient was transferred to the postanesthesia care unit in stable condition. Intraoperative findings including images were reviewed with the patient's family were pleased with the level of care.
[2021-01-01] MEDS ORDERED: SIMETHICONE 40 MG/0.6 ML DROPS 2,000 MG/30 ML BOTTLE PO SCH (13:30)
[2021-01-01 14:27] VITALS: BP 117/80; PULSE 90
--- NOTE | 2021-01-01 18:53 | P.DS ---
Providers Date of admission: 12/31/20 12:52 Expected date of discharge: 01/01/21 Attending physician: Brando Bush MD Consults: 12/31/20 15:24 Consult Physician Routine Consulting Provider: Camila Jackson Consult Reason/Comments: appendicitis Do you want consulting provider notified?: Already Contacted 12/31/20 15:47 Consult Physician Routine Consulting Provider: Brando Bush Consult Reason/Comments: appendicitis medical management Do you want consulting provider notified?: Already Contacted 01/01/21 09:42 Consult Physician Routine Consulting Provider: [facility] Consult Reason/Comments: [facility] Do you want consulting provider notified?: Yes Primary care physician: Noel Mitchell - Discharge Diagnosis(es) (1) Appendicolith Current Visit: Yes Status: Acute (2) Morbid obesity due to excess calories Current Visit: Yes Status: Acute (3) BMI 39.0-39.9,adult Current Visit: Yes Status: Acute (4) Fatty liver disease, nonalcoholic Current Visit: Yes Status: Acute (5) Mesenteric adenitis Current Visit: Yes Status: Acute (6) Neutrophilia Current Visit: Yes Status: Acute (7) Intrauterine device Current Visit: Yes Status: Acute (8) Acute appendicitis Current Visit: Yes Status: Acute (9) Meckel diverticulum Current Visit: Yes Status: Acute Hospital Course: Postoperative Diagnosis: 1. Right lower quadrant abdominal pain 2. Left lower quadrant abdominal pain including periumbilical pain 3. Abnormal CT for appendicolith 4. Acute appendicitis 5. Morbid obesity due to excess calories, BMI 39.4 6. Small bowel Meckel's diverticulum at ileum COURSE: The patient is a 20-year-old male who presented with 2-3 day of periumbilical pain including bilateral lower abdominal pain. CT of the abdomen and pelvis to the short appendicolith and possible appendicitis. Robotic appendectomy was performed with features of Meckel's diverticulum. Postoperatively after appendectomy and excision of diverticulum, patient reported periumbilical pain and bilateral lower abdominal pain had completely resolved. Patient was stable for discharge. Procedures: Procedure(s) Performed: 1. Robotic-assisted daVinci Xi laparoscopic appendectomy 2. Robotic-assisted daVinci Xi laparoscopic small bowel resection of Meckel's diverticulum Anesthesia: GETA, local Estimated Blood Loss (ml): 5 Pathology: other (appendix and Meckel's diverticulum) Condition: stable Disposition: floor Operative Findings: 1. Dilated tip of appendix with appendicolith 2. No creeping mesenteric fat or signs of small bowel Crohn's disease 3. Cecum unremarkable 4. Identification of Meckel's diverticulum consistent with abdominal pain and consent obtained from mother for excision. 5. Meckel's diverticulum of 2 inches identified within 2 feet of the ileocecal valve INDICATIONS: The patient is a 20-year-old male who presents with 2-3 day of periumbilical pain including bilateral lower abdominal pain. She presented with leukocytosis. Diagnostic studies demonstrated appendicolith. Benefits and risks, including infection, open surgery, and bleeding for additional surgery was discussed at length. Informed consent was obtained. All questions of the patient and family were answered. Patient Condition at Discharge: Stable Plan - Discharge Summary Discharge Rx Participant: No New Discharge Prescriptions: New Ibuprofen [Motrin] 600 mg PO Q8HR PRN #30 tab PRN Reason: Pain Simethicone 40 mg/0.6 ml Drops [Mylicon Drops] 80 mg PO Q6HR PRN #30 ml PRN Reason: Abdominal Distention Acetaminophen [Tylenol] 650 mg PO Q4H #30 tab Continue Levonorgestrel [Kyleena (IUD)] 1 implant VAGINAL [id number] Discharge Medication List Levonorgestrel [Kyleena (IUD)] 1 implant VAGINAL [id number] 12/31/20 [History] Acetaminophen [Tylenol] 650 mg PO Q4H #30 tab 01/01/21 [Rx] Ibuprofen [Motrin] 600 mg PO Q8HR PRN #30 tab 01/01/21 [Rx] Simethicone 40 mg/0.6 ml Drops [Mylicon Drops] 80 mg PO Q6HR PRN #30 ml 01/01/21 [Rx] Follow up Appointment(s)/Referral(s): Noel Mitchell MD [Primary Care Provider] - 1-2 days Camila Jackson MD [STAFF PHYSICIAN] - 01/04/21 (Please call for appointment time) Patient Instructions/Handouts: Appendicitis (GEN), Laparoscopic Appendectomy (DC) Activity/Diet/Wound Care/Special Instructions: No lifting over 10 pounds in 2 weeks until January 15. July shower. No bath tub soaks for two weeks until January 15. Diet as tolerated. Use Tylenol, simethicone and ibuprofen or Aleve scheduled for the next 24-48 ho urs for best pain relief. Use ice along incisions for today to prevent swelling. Discharge Disposition: HOME SELF-CARE
== END 2021-01-01 16:15 | disposition home or self-care (01) ==
LOC: EC 09:39 → 6PED 12:52
PROVIDERS: ADMIT Internal Medicine; ATTEND Internal Medicine
DX: K35.80 Unspecified acute appendicitis (principal); Q43.0 Meckel's diverticulum (displaced) (hypertrophic); K38.1 Appendicular concretions; K76.0 Fatty (change of) liver, not elsewhere classified; I88.0 Nonspecific mesenteric lymphadenitis; F90.9 Attention-deficit hyperactivity disorder, unspecified type; E66.01 Morbid (severe) obesity due to excess calories; Z68.39 Body mass index [BMI] 39.0-39.9, adult; Z20.822 Contact with and (suspected) exposure to COVID-19; Z79.899 Other long term (current) drug therapy; Z97.5 Presence of (intrauterine) contraceptive device; Z71.3 Dietary counseling and surveillance
CPT/HCPCS: 44238; 44970; S2900; 36415; 74177; 80053; 81001; 81025; 82150; 83605; 83690; 85025; 87635; 88304; 96374; 96375; 96376; 99285

== ENCOUNTER 2021-02-17 23:01 | Emergency (ER) | payer BC ==
[2021-02-17 23:21] VITALS: TEMP 98.7
--- NOTE | 2021-02-18 00:23 | XR ---
EXAMINATION TYPE: XR chest 1V portable DATE OF EXAM: 02/18/2021 COMPARISON: NONE HISTORY: Chest pain TECHNIQUE: Single view FINDINGS: Heart and mediastinum are normal. Lungs are clear. Diaphragm is normal. Bony thorax is inta ct. IMPRESSION: Normal chest
[2021-02-18] MEDS ORDERED: ONDANSETRON 4 MG/2 ML VIAL IVP STA (01:26)
[2021-02-18] MEDS ORDERED: KETOROLAC 30 MG/ML 1 ML VIAL IVP STA (01:26)
[2021-02-18 02:01] LABS: Appearance,Urine Clear (Clear); Bacteria,Urine Rare /hpf; Bilirubin,Urine Negative (Negative); Blood,Urine Negative (Negative); Color,Urine Yellow; Glucose,Urine (UA) Negative (Negative); Ketones,Urine Negative (Negative); Leukocyte Esterase,Urine Small (Negative); Mucus,Urine Many /hpf; Nitrite,Urine Negative (Negative); Protein,Urine Negative (Negative); RBC,Urine 11 /hpf (0-5); Specific Gravity,Urine 1.026 (1.001-1.035); Squamous Epithelial Cell,Urine 2 /hpf (0-4); Urobilinogen,Urine <2.0 mg/dL (<2.0); WBC,Urine 2 /hpf (0-5)
[2021-02-18 02:03] LABS: Basophils % (A) 0 %; Eosinophils # (A) 0.2 k/uL (0-0.7); Eosinophils % (A) 2 %; HCT 41.2 % (34.0-46.0); HGB 14.3 gm/dL (11.4-16.0); Lymphocytes # (A) 2.2 k/uL (1.0-4.8); Lymphocytes % (A) 16 %; MCH 30.9 pg (25.0-35.0); MCHC 34.9 g/dL (31.0-37.0); MCV 88.6 fL (80.0-100.0); Mean Platelet Volume 7.8; Monocytes # (A) 0.7 k/uL (0-1.0); Monocytes % (A) 5 %; Neutrophils # (A) 10.6 k/uL (1.3-7.7); Neutrophils % (A) 76 %; Platelet Count 212 k/uL (150-450); RBC 4.64 m/uL (3.80-5.40); RDW 12.2 % (11.5-15.5); WBC 13.9 k/uL (3.8-10.6)
--- NOTE | 2021-02-18 02:18 | ED ---
Chest Pain HPI - General Chief Complaint: Chest Pain Stated Complaint: Chest pain, vomiting Time Seen by Provider: 02/18/21 01:03 Source: patient, RN notes reviewed, old records reviewed Mode of arrival: ambulatory Limitations: no limitations - History of Present Illness Initial Comments: Patient is a 20-year-old female presenting to emergency Department with complaints of chest pain that began about a few weeks ago. Patient states over the past few days she is also become nauseous, body aches, abdominal pain and just generalized illness. Patient had an appendectomy about a month and a half ago with Dr. Garner. She denies any shortness of breath, no fevers. She has no history of blood clots, no recent travel. She denies being . Patient denies any dysuria or frequency. She has no further complaints. Patient's vital signs are stable upon arrival. - Related Data Home Medications Medication Instructions Recorded Confirmed Levonorgestrel [Kyleena (IUD)] 1 implant VAGINAL [id number] 12/31/20 12/31/20 Previous Rx's Medication Instructions Recorded Acetaminophen [Tylenol] 650 mg PO Q4H #30 tab 01/01/21 Ibuprofen [Motrin] 600 mg PO Q8HR PRN #30 tab 01/01/21 Simethicone 40 mg/0.6 ml Drops 80 mg PO Q6HR PRN #30 ml 01/01/21 [Mylicon Drops] Allergies Allergy/AdvReac Type Severity Reaction Status Date / Time No Known Allergies Allergy Verified 02/17/21 23:21 Review of Systems ROS Statement: Those systems with pertinent positive or pertinent negative responses have been documented in the HPI. ROS Other: All systems not noted in ROS Statement are negative. EKG Findings - EKG Comments: EKG Findings:: Normal sinus rhythm, cannot rule out anterior infarct, age undetermined, no signs of acute ST segment elevation. Ventricular rate 97, OK interval 124, QT 348. Past Medical History Past Medical History: No Reported History History of Any Multi-Drug Resistant Organisms: None Reported Past Surgical History: Appendectomy Past Anesthesia/Blood Transfusion Reactions: No Reported Reaction Past Psychological History: ADD/ADHD Smoking Status: Never smoker Past Alcohol Use History: None Reported Past Drug Use History: None Reported - Past Family History Mother History Unknown: Yes General Exam - General Exam Comments Initial Comments: GENERAL: Patient is well-developed and well-nourished. Patient is nontoxic and in no acute distress. HEAD: Atraumatic, normocephalic. EYES: Pupils equal round and reactive to light, extraocular movements intact, sclera anicteric, conjunctiva are normal. Eyelids were unremarkable. ENT: Nares patent, oropharynx clear without exudates. Moist mucous membranes. NECK: Normal range of motion, supple without lymphadenopathy or JVD. LUNGS: Unlabored respirations. Breath sounds clear to auscultation bilaterally and equal. No wheezes rales or rhonchi. HEART: Regular rate and rhythm without murmurs, rubs or gallops. ABDOMEN: Soft, mild tenderness to left-sided abdomen, suprapubic, normoactive bowel sounds. No guarding, no rebound. No masses appreciated. : Deferred MUSCULOSKELETAL: Normal extremities with adequate strength and normal range of motion, no pitting or edema. No clubbing or cyanosis. NEUROLOGICAL: Patient is alert and oriented x 3. Symmetrical smile. Normal speech, normal gait. PSYCH: Normal mood, normal affect. SKIN: Warm, Dry, normal turgor, no rashes or lesions noted. Limitations: no limitations Course Vital Signs 02/17/21 02/18/21 23:18 00:54 Temperature 98.7 F Pulse Rate 101 H 87 Respiratory 22 18 Rate Blood Pressure 116/82 117/61 O2 Sat by Pulse 97 97 Oximetry Chest Pain [facility] Patient is a 20-year-old female here with chest pains over the past couple weeks, increase in nausea, abdominal pain, generalized is not feeling well. She had appendectomy about a month and half ago. Her vitals are stable today. Labs are unremarkable including a normal troponin, negative d-dimer. Urine reveals no evidence of infection, hCG is negative,: It is negative. Patient was given Toradol and Zofran has been resting comfortably. Upon recheck, patient was sleeping. She states her symptoms have improved. I discussed these findings with her. Her symptoms could be from some reflux, recommend continuing with the omeprazole. If symptoms persist she can follow up with her primary care as well as her surgeon. Patient is agreeable to this plan of care. She is stable for discharge. Case discussed with Dr. Calhoun. Disposition Clinical Impression: Atypical chest pain, Abdominal pain Disposition: HOME SELF-CARE Condition: Stable Instructions (If sedation given, give patient instructions): Gastroesophageal Reflux Disease (ED) Additional Instructions: Please return to the Emergency Department if symptoms worsen or any other concerns. Please continue with omeprazole. Please follow-up with your primary care if symptoms persist as well as her surgeon. Is patient prescribed a controlled substance at d/c from ED?: No Referrals: Noel Mitchell MD [Primary Care Provider] - 1-2 days Time of Disposition: 03:25
[2021-02-18 02:29] LABS: ALT 22 U/L (4-34); AST 25 U/L (14-36); African American GFR (CKD) >90 (>60 ml/min/1.73 sqM); Albumin 4.2 g/dL (3.5-5.0); Alkaline Phosphatase 81 U/L (38-126); Anion Gap 8 mmol/L; Blood Urea Nitrogen 18 mg/dL (7-17); Calcium 8.4 mg/dL (8.4-10.2); Carbon Dioxide 25 mmol/L (22-30); Chloride 104 mmol/L (98-107); Glucose 88 mg/dL (74-99); Lipase 84 U/L (23-300); Non-African American GFR(CKD) >90 (>60 ml/min/1.73 sqM); Potassium 3.5 mmol/L (3.5-5.1); Sodium 137 mmol/L (137-145); Total Bilirubin 0.7 mg/dL (0.2-1.3); Total Protein 6.3 g/dL (6.3-8.2)
[2021-02-18 03:44] VITALS: BP 131/78; PULSE 78; RESP 16
== END 2021-02-18 03:44 | disposition home or self-care (01) ==
LOC: EC 23:01
DX: R07.89 Other chest pain (principal); R10.9 Unspecified abdominal pain; F90.9 Attention-deficit hyperactivity disorder, unspecified type
CPT/HCPCS: 36415; 93005; 85379; 80053; 83605; 83690; 84484; 85025; 81001; 81025; 87635; 71045; 99285; 96374; 96375; J2405; J1885

== ENCOUNTER → 2021-02-23 | Outpatient (CLI) | payer BC ==
--- NOTE | 2021-02-23 17:52 | CT ---
EXAMINATION TYPE: CT abdomen pelvis wo con DATE OF EXAM: 02/23/2021 COMPARISON: 12/31/2020 HISTORY: Mid abdominal pain post appendectomy on 01/01/21, nausea and vomiting CT DLP: 892.8 mGycm Automated exposure control for dose reduction was used. Images obtained from the diaphragm to the floor the pelvis with no contrast. Lung bases are clear. There is no pleural effusion. Heart size is normal. There is no pericardial eff usion. Liver spleen stomach pancreas gallbladder appear intact. The bile ducts are not dilated. There is no adrenal mass. Kidneys have normal size and contour. There is no hydronephrosis. Ureters a re not dilated. There is no retroperitoneal adenopathy. Bladder distends smoothly. There is IUD in th e uterine fundus. Uterus is anteverted. There is no inguinal hernia. There is no evidence of pelvic m ass. There is no free fluid in the pelvis. There are clips from appendectomy. There is no mesenteric edema. There is no ascites or free air. The re is no bowel obstruction. The lumbar vertebra have normal alignment. Posterior elements are intact. There is no compression fra cture. The bony pelvis is intact. The hip joints are intact. Sacroiliac joints are intact. IMPRESSION: No acute abnormality of the abdomen pelvis. No adverse change compared to old exam.
== END | disposition home or self-care (01) ==
LOC: RADCTMAIN 16:39
PROVIDERS: ATTEND Family Medicine
DX: R10.9 Unspecified abdominal pain (principal); R11.2 Nausea with vomiting, unspecified; Z90.89 Acquired absence of other organs
CPT/HCPCS: 74176

== ENCOUNTER 2021-05-05 11:56 | Day surgery (SDC) | payer BC ==
[2021-05-03 11:47] VITALS: BMI 39.6
[~2021-05-05 11:56] MED LIST: DEXAMETHASONE SOD PHOSPHATE 4 MG/ML 1 ML VIAL IV ONE; HEPARIN SODIUM,PORCINE/PF 5,000 UNIT/0.5 ML SYRINGE SQ PRN; LACTATED RINGERS 1,000 ML IV SCH; LIDOCAINE 1% (10MG/ML) FOR IV START INTRADERMA PRN; MIDAZOLAM 2 MG/2 ML VIAL IV PRN; ONDANSETRON 4 MG/2 ML VIAL IVP ONE
[2021-05-05 12:37] VITALS: TEMP 98.6
[2021-05-05] MEDS ORDERED: ACETAMINOPHEN TAB 500 MG TAB PO PRN (12:40)
[2021-05-05] MEDS ORDERED: SCOPOLAMINE 1.5MG/72HR PATCH TRANSDERM PRN (12:40)
[2021-05-05] MEDS ORDERED: GABAPENTIN 300 MG CAP PO PRN (12:40)
--- NOTE | 2021-05-05 12:42 | P.GSHP ---
History of Present Illness H&P Date: 05/05/21 CHIEF COMPLAINT: Cholecystitis HISTORY OF PRESENT ILLNESS: The patient is a 20-year-old female who presents with history of epigastric including right upper quadrant abdominal pain. She underwent diagnostic studies for her gallbladder. Separately her clinical picture was consistent with cholecystitis. Now she presents for surgical intervention. PAST MEDICAL HISTORY: Please see list PAST SURGICAL HISTORY: Please see list MEDICATIONS: Please see list ALLERGIES: Please see list SOCIAL HISTORY: Please see list FAMILY HISTORY: Please see list REVIEW OF ORGAN SYSTEMS: CONSTITUTIONAL: No reports of fevers or chills. HEENT: Denies any troubles with the vision or hearing. ENDOCRINE: No reports of hypothyroidism. No diabetes. RESPIRATORY: No recent pneumonias. CARDIOVASCULAR: Denies chest pain or palpitations GI: No blood in stools or constipation. MUSCULOSKELETAL: Has occasional joint pain including back pain. NEURO: No seizure disorders or headaches. No recent stroke. PSYCH: No depression or suicidal ideation. GENITOURINARY: No active blood in urine. No urinary hesitancy. HEMATOLOGIC: No personal or family history of DVTs or pulmonary emboli. SKIN: No skin cancer. PHYSICAL EXAM: VITAL SIGNS: Afebrile vital signs stable GENERAL: Well-developed pleasant in no acute distress. HEENT: No scleral icterus. Extraocular movements grossly intact. Moist buccal mucosa. NECK: Supple without lymphadenopathy. CHEST: Unlabored respirations. Equal bilateral excursions. CARDIOVASCULAR: Regular rate regular rhythm rhythm. Distal 2+ pulses. ABDOMEN: Soft, nondistended. Tender along the epigastrium and right upper quadrant. MUSCULOSKELETAL: No clubbing, cyanosis, or edema. NEURO: Cranial nerves II to XII within normal limits. No focal or lateralizing signs. PSYCH: Alert and oriented to person, place and time. SKIN: Well-perfused good skin turgor. ASSESSMENT: 1. Epigastric and right upper quadrant abdominal pain 2. Chronic cholecystitis 3. Symptomatic gallstones. PLAN: 1. Will need a robotic cholecystectomy possible open. Benefits and risks were described. 2. Heparin for DVT prophylaxis 5000 units. 3. Antibiotic prophylaxis. Past Medical History Past Medical History: GERD/Reflux History of Any Multi-Drug Resistant Organisms: None Reported Past Surgical History: Appendectomy, Tonsillectomy Past Anesthesia/Blood Transfusion Reactions: No Reported Reaction Past Psychological History: ADD/ADHD Smoking Status: Never smoker Past Alcohol Use History: Occasional Past Drug Use History: None Reported - Past Family History Mother History Unknown: Yes Medications and Allergies Home Medications Medication Instructions Recorded Confirmed Type Levonorgestrel [Kyleena (IUD)] 1 implant VAGINAL [id number] 12/31/20 05/05/21 Histo ry Anapaz 0.125 mg SL Q4H 05/03/21 05/05/21 History Omeprazole 40 mg PO DAILY 05/03/21 05/05/21 History ondansetron HCL [Zofran] 8 mg PO TID PRN 05/03/21 05/05/21 History Allergies Allergy/AdvReac Type Severity Reaction Status Date / Time No Known Allergies Allergy Verified 05/05/21 12:15 Surgical - Exam Vital Signs Temp Pulse Resp BP Pulse Ox 98.6 F 58 L 18 104/51 100 05/05/21 12:34 05/05/21 12:34 05/05/21 12:34 05/05/21 12:34 05/05/21 12:34
[2021-05-05] MEDS ORDERED: MELOXICAM 7.5 MG TAB PO SCH (12:45)
[2021-05-05 13:36] LABS: Basophils % (A) 1 %; Eosinophils # (A) 0.1 k/uL (0-0.7); Eosinophils % (A) 2 %; HCT 43.2 % (34.0-46.0); HGB 14.7 gm/dL (11.4-16.0); Lymphocytes # (A) 2.5 k/uL (1.0-4.8); Lymphocytes % (A) 28 %; MCH 30.9 pg (25.0-35.0); MCHC 34.1 g/dL (31.0-37.0); MCV 90.6 fL (80.0-100.0); Mean Platelet Volume 7.4; Monocytes # (A) 0.5 k/uL (0-1.0); Monocytes % (A) 6 %; Neutrophils # (A) 5.6 k/uL (1.3-7.7); Neutrophils % (A) 63 %; Platelet Count 242 k/uL (150-450); RBC 4.77 m/uL (3.80-5.40); RDW 12.8 % (11.5-15.5); WBC 8.9 k/uL (3.8-10.6)
[2021-05-05 13:46] LABS: ALT 33 U/L (4-34); AST 25 U/L (14-36); African American GFR (CKD) >90 (>60 ml/min/1.73 sqM); Albumin 4.4 g/dL (3.5-5.0); Alkaline Phosphatase 87 U/L (38-126); Anion Gap 9 mmol/L; Blood Urea Nitrogen 18 mg/dL (7-17); Calcium 9.1 mg/dL (8.4-10.2); Carbon Dioxide 25 mmol/L (22-30); Chloride 104 mmol/L (98-107); Glucose 83 mg/dL (74-99); Non-African American GFR(CKD) >90 (>60 ml/min/1.73 sqM); Potassium 3.7 mmol/L (3.5-5.1); Sodium 138 mmol/L (137-145); Total Bilirubin 0.8 mg/dL (0.2-1.3); Total Protein 6.6 g/dL (6.3-8.2)
[2021-05-05] MEDS ORDERED: GLYCOPYRROLATE 0.2 MG/ML 2 ML VIAL ONE (14:03)
[2021-05-05] MEDS ORDERED: LIDOCAINE 1% INJ 10MG/ML (20 ML MDV) ONE (14:03)
[2021-05-05] MEDS ORDERED: SUCCINYLCHOLINE CHLORIDE 100 MG/5 ML SYR IV ONE (14:03)
[2021-05-05] MEDS ORDERED: MIDAZOLAM 2 MG/2 ML VIAL ONE (14:03)
[2021-05-05] MEDS ORDERED: HYDROmorphone (PF) 1 MG/ML ONE (14:03)
[2021-05-05] MEDS ORDERED: fentaNYL (PF) 50 MCG/ML 2 ML AMP ONE (14:03)
[2021-05-05] MEDS ORDERED: KETOROLAC 15 MG/ML 1 ML VIAL ONE (14:03)
[2021-05-05] MEDS ORDERED: PHENYLEPHRINE-0.9% NACL SYG 1,000 MCG/10 ML SYRINGE ONE (14:03)
[2021-05-05] MEDS ORDERED: ROCURONIUM 10 MG/ML (5 ML VIAL) IV ONE (14:03)
[2021-05-05] MEDS ORDERED: NEOSTIGMINE 1 MG/ML 10 ML VIAL ONE (14:03)
[2021-05-05] MEDS ORDERED: BUPIVACAIN-EPI 0.25%-1:200,000 30 ML VIAL SQ ONE (14:03)
[2021-05-05] MEDS ORDERED: PROPOFOL 10 MG/ML 20 ML VIAL IV ONE (14:03)
[2021-05-05] MEDS ORDERED: INDOCYANINE GREEN 25 MG VIAL IV STA (14:11)
[2021-05-05] MEDS ORDERED: LACTATED RINGERS 1,000 ML IV ONE ×2 (14:56→15:30)
--- NOTE | 2021-05-05 15:20 | P.OP ---
Date of Procedure: 05/05/21 Description of Procedure: SURGEON: CAMILA JCAKSON MD PREOPERATIVE DIAGNOSES: 1. Symptomatic gallstones 2. Right upper quadrant abdominal pain 3. Irritable bowel syndrome 4. Morbid obesity due to excess calories, BMI 39.8 5. Gastroesophageal reflux disease POSTOPERATIVE DIAGNOSES: 1. Symptomatic gallstones 2. Right upper quadrant abdominal pain 3. Irritable bowel syndrome 4. Morbid obesity due to excess calories, BMI 39.8 5. Gastroesophageal reflux disease 6. Chronic cholecystitis 7. Peritoneal adhesions, right upper quadrant OPERATION: 1. Robotic-assisted da Jayna Xi laparoscopic cholecystectomy, multiport with FIREFLY 2. Robotic-assisted da Jayna Xi laparoscopic lysis of adhesions ESTIMATED BLOOD LOSS: 10 mL. SPECIMENS REMOVED: Gallbladder. COMPLICATIONS: None. OPERATIVE FINDINGS: 1. Scarring over gallbladder with peritoneal adhesions, pericholecystic with features of chronic cholecystitis INDICATIONS: The patient is a 20-year-old female who presents with symptomatic gallstones. Robotic assisted laparoscopic approach was described. Benefits and risks of the procedure including but not limited to bleeding, infection, injury to the biliary tree was described. Informed consent was obtained. DESCRIPTION OF PROCEDURE: Patient was brought to the operating room, placed in supine position. After general induction, the abdomen had been prepped and draped in standard sterile fashion. The robotic da Jayna XI system was primed. After a timeout protocol was performed, the patient had been prepped and draped in standard sterile fashion. The patient was injected with indocyanine green. A 5 mm 0 degrees laparoscopic trocar entry was performed along the left upper quadrant. The abdomen insufflated to 15 mmHg pressure which was tolerated well. Diagnostic laparoscopy demonstrated no injury to bowel viscera or mesentery. The liver surface was unremarkable. Next, two 8 mm robotic ports were placed along the right upper abdomen. The camera 8-mm port was maintained along the epigastrium. Another 8 mm port was placed along the left upper abdominal wall after exchanging the 5 mm port. Please note that the ports were placed at least 10 to 15 cm away from the target anatomy of the gallbladder. The robot was docked along the left lateral abdomen. The patient was repositioned in reverse Trendelenburg position. Using a grasper for arm 3, a grasper for arm 4, including hook cautery for arm 1, the robotic system was docked and primed as described. Instruments were interchanged by the personal injury legal assistant including hook cautery, Bovie cautery and clip appliers. I had sat at the console. The gallbladder was scarred with peritoneal adhesions. Lysis of adhesions was performed to free the gallbladder from the surrounding tissues. Next attention was brought to the infundibulum and cystic structures. The infundibulum and cystic duct were dissected free from surrounding tissues. The cystic duct was isolated. FIREFLY was used to identify the cystic artery and cystic structures. A critical view of safety was obtained. Large PLASTIC clips were used throughout the entire case. Using a clip label cutter, 2 clips were placed at the junction of the infundibulum and cystic duct. The cystic duct was divided between clips. Next, the cystic artery was similarly clipped and cauterized. Electro-Bovie cautery was used to remove the gallbladder from the hepatic fossa. Hemostasis was checked and found to be adequate. The robot was undocked. I re-scrubbed into the case. Using a 10 mm Endo Catch bag via the left upper quadrant incision, the specimen was removed from the abdominal cavity. All pneumoperitoneum instruments were evacuated from the abdominal cavity. The incisions were reapproximated using 4-0 Monocryl in an interrupted subcuticular fashion. Fascial defects were less than 8 mm in size. Please note along the trocar sites, local anesthetic was placed as a field block prior to insertion of all instruments. Liquid glue was applied to the skin. At the end of the procedure needle, sponge, and instrument count had been verified correct by the surgical supplies sterilizer. The patient was transferred to postanesthesia care unit in stable condition. Intraoperative films were shared with the patient's family. Plan - Discharge Summary Discharge Rx Participant: Yes New Discharge Prescriptions: New Ibuprofen [Motrin] 600 mg PO Q8HR PRN #30 tab PRN Reason: Pain Acetaminophen Tab [Tylenol Tab] 1,000 mg PO Q6HR PRN #30 tablet PRN Reason: Pain Simethicone [Gas-X] 125 mg PO AC-TID PRN #20 capsule PRN Reason: Pain Continue Anapaz 0.125 mg SL Q4H Levonorgestrel [Kyleena (IUD)] 1 implant VAGINAL [id number] ondansetron HCL [Zofran] 8 mg PO TID PRN PRN Reason: Nausea And Vomiting Omeprazole 40 mg PO DAILY Discharge Medication List Levonorgestrel [Kyleena (IUD)] 1 implant VAGINAL [id number] 12/31/20 [History] Anapaz 0.125 mg SL Q4H 05/03/21 [History] Omeprazole 40 mg PO DAILY 05/03/21 [History] ondansetron HCL [Zofran] 8 mg PO TID PRN 05/03/21 [History] Acetaminophen Tab [Tylenol Tab] 1,000 mg PO Q6HR PRN #30 tablet 05/05/21 [Rx] Ibuprofen [Motrin] 600 mg PO Q8HR PRN #30 tab 05/05/21 [Rx] Simethicone [Gas-X] 125 mg PO AC-TID PRN #20 capsule 05/05/21 [Rx] Follow up Appointment(s)/Referral(s): Camila Jackson MD [STAFF PHYSICIAN] - 05/10/21 Patient Instructions/Handouts: *[facility] - Managing Your Pain After Surgery Without Opioids, Laparoscopic Cholecystectomy (DC), Low Fat Diet (DC) Activity/Diet/Wound Care/Special Instructions: Recommend low-fat diet for the next 2 days. No lifting over 10 pounds in 2 weeks until May 19. May shower. No bath tub soaks for two weeks until May 19. Diet as tolerated. Use Tylenol, simethicone and ibuprofen or Aleve scheduled for the next 24-48 hours for best pain relief. Use ice along incisions for today to prevent swelling. Discharge Disposition: HOME SELF-CARE
[2021-05-05] MEDS: HYDROmorphone 0.5 MG/0.5 ML SYRINGE IVP PRN ×2 (15:38→15:50)
[2021-05-05 16:34] VITALS: RESP 16
[2021-05-05 17:33] VITALS: BP 115/74; PULSE 85
[2021-05-05] MEDS ORDERED: ONDANSETRON ODT 4 MG TAB PO ONE (17:40)
== END 2021-05-05 17:48 | disposition home or self-care (01) ==
LOC: OR 11:56
PROVIDERS: ATTEND Surgery Plastic and Reconstructive Surgery
DX: K80.10 Calculus of gallbladder with chronic cholecystitis without obstruction (principal); K66.0 Peritoneal adhesions (postprocedural) (postinfection); K58.9 Irritable bowel syndrome, unspecified; E66.01 Morbid (severe) obesity due to excess calories; Z68.39 Body mass index [BMI] 39.0-39.9, adult; K21.9 Gastro-esophageal reflux disease without esophagitis; Z97.5 Presence of (intrauterine) contraceptive device; Z90.49 Acquired absence of other specified parts of digestive tract; Z98.890 Other specified postprocedural states; F90.9 Attention-deficit hyperactivity disorder, unspecified type; Z79.899 Other long term (current) drug therapy
CPT/HCPCS: 81025; 80053; 85025; 47563; J2250; J1100; J2710; J0690; J2405; J2001; J3010; J1170 ×2; J1885; J2370; J0330; J2704; J1644

== ENCOUNTER → 2021-06-03 | Outpatient (CLI) | payer BC ==
[2021-06-03 15:30] LABS: African American GFR (CKD) 148.5 (60.0-200.0); Albumin 4.8 g/dL (3.8-4.9); Albumin/Globulin Ratio 2.81 (1.60-3.17); Anion Gap 14.3 mmol/L (10.00-18.00); BUN/Creat Ratio 18.23 Ratio (12.00-20.00); Blood Urea Nitrogen 11.5 mg/dL (9.0-27.0); Calcium 9.4 mg/dL (8.7-10.3); Carbon Dioxide 23.4 mmol/L (20.0-27.5); Globulin 1.7 g/dL (1.6-3.3); Non-African American GFR(CKD) 128.2 (60.0-200.0); Potassium 4.6 mmol/L (3.5-5.5); Total Bilirubin 0.3 mg/dL (0.30-1.20); Total Protein 6.6 g/dL (6.2-8.2)
== END | disposition home or self-care (01) ==
LOC: LABWHC1 09:11
PROVIDERS: ATTEND Surgery Plastic and Reconstructive Surgery
DX: R74.01 Elevation of levels of liver transaminase levels (principal)
CPT/HCPCS: 36415; 80053

== ENCOUNTER 2021-06-30 08:12 | Day surgery (SDC) | payer BC ==
[2021-06-29 08:20] VITALS: BMI 38.7
--- NOTE | 2021-06-30 07:50 | P.GSHP ---
History of Present Illness H&P Date: 06/30/21 CHIEF COMPLAINT: GERD HISTORY OF PRESENT ILLNESS: The patient is a 20-year-old female who presents reports gastroesophageal reflux disease. Upper endoscopy was offered for further evaluation and management. PAST MEDICAL HISTORY: Please see list. PAST SURGICAL HISTORY: Please see list. MEDICATIONS: Please see list. ALLERGIES: Please see list. SOCIAL HISTORY: No illicit drug use FAMILY HISTORY: No reports of Crohn disease or ulcerative colitis. REVIEW OF ORGAN SYSTEMS: CONSTITUTIONAL: No reports of fevers or chills. GI: Denies any blood in stools or constipation. PHYSICAL EXAM: VITAL SIGNS: Stable GENERAL: Well-developed and pleasant in no acute distress. HEENT: No scleral icterus. Extraocular movements grossly intact. Moist buccal mucosa. NECK: Supple without lymphadenopathy. CHEST: Unlabored respirations. Equal bilateral excursions. CARDIOVASCULAR: Regular rate and rhythm. Distal 2+ pulses. ABDOMEN: Soft, nondistended. MUSCULOSKELETAL: No clubbing, cyanosis, or edema. ASSESSMENT: 1. Gastroesophageal reflux disease PLAN: 1. Recommend proceeding with an upper endoscopy Past Medical History Past Medical History: GERD/Reflux Additional Past Medical History / Comment(s): ABD PAIN AND ELEVATED LIVER ENZYMES History of Any Multi-Drug Resistant Organisms: None Reported Past Surgical History: Appendectomy, Cholecystectomy Past Anesthesia/Blood Transfusion Reactions: No Reported Reaction Smoking Status: Never smoker - Past Family History Mother History Unknown: Yes Family Medical History: No Reported History Medications and Allergies Home Medications Medication Instructions Recorded Confirmed Type Levonorgestrel [Kyleena (IUD)] 1 implant VAGINAL [id number] 12/31/20 06/29/21 History Anapaz 0.125 mg SL Q4H 05/03/21 06/29/21 History Omeprazole 40 mg PO DAILY 05/03/21 06/29/21 History ondansetron HCL [Zofran] 8 mg PO TID PRN 05/03/21 06/29/21 History Acetaminophen Tab [Tylenol Tab] 1,000 mg PO Q6HR PRN #30 tablet 05/05/21 06/29/21 Rx Ibuprofen [Motrin] 600 mg PO Q8HR PRN #30 tab 05/05/21 06/29/21 Rx Simethicone [Gas-X] 125 mg PO AC-TID PRN #20 capsule 05/05/21 06/29/21 Rx Dextroamphetamine/Amphetamine 25 mg PO QAM 06/29/21 06/29/21 History [Adderall Xr] Allergies Allergy/AdvReac Type Severity Reaction Status Date / Time No Known Allergies Allergy Verified 06/29/21 08:13
[~2021-06-30 08:12] MED LIST changes: -DEXAMETHASONE SOD PHOSPHATE 4 MG/ML 1 ML VIAL IV ONE; -HEPARIN SODIUM,PORCINE/PF 5,000 UNIT/0.5 ML SYRINGE SQ PRN; -MIDAZOLAM 2 MG/2 ML VIAL IV PRN; -ONDANSETRON 4 MG/2 ML VIAL IVP ONE
[2021-06-30 08:44] VITALS: TEMP 97.4
[2021-06-30] MEDS ORDERED: PROPOFOL 10 MG/ML 20 ML VIAL IV ONE (09:44)
[2021-06-30] MEDS ORDERED: KETAMINE 10 MG/ML 20 ML VIAL ONE (09:44)
[2021-06-30] MEDS ORDERED: LIDOCAINE 1% INJ 10MG/ML (20 ML MDV) ONE (09:44)
[2021-06-30 10:16] VITALS: BP 129/77
--- NOTE | 2021-06-30 10:24 | P.PCN ---
Date of Procedure: 06/30/21 Description of Procedure: PREOPERATIVE DIAGNOSIS: Gastroesophageal reflux disease. Morbid obesity. Epigastric abdominal pain POSTOPERATIVE DIAGNOSIS: Gastroesophageal reflux disease. Morbid obesity. Gastritis. Diaphragmatic hiatal hernia OPERATION: Esophagogastroduodenoscopy with biopsies along antrum and duodenum SURGEON: Camila Jackson MD ANESTHESIA: MAC. INDICATIONS: The patient is a 20-year-old female who presents with reflux disease. Benefits and risks of the procedure were described. Informed consent was obtained. DESCRIPTION: The patient was brought into the endoscopy suite and laid in the left lateral decubitus position. An Olympus gastroscope was passed along the posterior oropha rynx down to the distal esophagus where the squamocolumnar junction was encountered at 36 cm from the incisors. The stomach was entered and no bile reflux was found. Additional findings are listed below. Biopsies with cold forceps were obtained of the antrum. The first through third portion of the duodenum was examined and the biopsies obtained for celiac disease. Retroflexion of the scope confirmed Hill grade 2 lower esophageal valve. The squamocolumnar junction demonstrated LA grade A erosive esophagitis. The stomach was desufflated. The patient tolerated the procedure well. FINDINGS: Squamocolumnar junction 36 cm from the incisors. Diaphragmatic hiatus at 37 cm. Hiatal hernia, 1 cm, sliding hiatal hernia Hill grade 2 lower esophageal valve. LA grade A erosive esophagitis. Biopsies obtained of the duodenum for celiac disease Chronic gastritis RECOMMENDATIONS: Upper endoscopy as needed. Plan - Discharge Summary Discharge Rx Participant: Yes New Discharge Prescriptions: Continue Anapaz 0.125 mg SL Q4H Ibuprofen [Motrin] 600 mg PO Q8HR PRN #30 tab PRN Reason: Pain Acetaminophen Tab [Tylenol] 1,000 mg PO Q6HR PRN #30 tablet PRN Reason: Pain Levonorgestrel [Kyleena (IUD)] 1 implant VAGINAL [id number] ondansetron HCL [Zofran] 8 mg PO TID PRN PRN Reason: Nausea And Vomiting Omeprazole 40 mg PO DAILY Simethicone [Gas-X] 125 mg PO AC-TID PRN #20 capsule PRN Reason: Pain Dextroamphetamine/Amphetamine [Adderall Xr] 25 mg PO QAM Discharge Medication List Levonorgestrel [Kyleena (IUD)] 1 implant VAGINAL [id number] 12/31/20 [History] Anapaz 0.125 mg SL Q4H 05/03/21 [History] Omeprazole 40 mg PO DAILY 05/03/21 [History] ondansetron HCL [Zofran] 8 mg PO TID PRN 05/03/21 [History] Acetaminophen Tab [Tylenol] 1,000 mg PO Q6HR PRN #30 tablet 05/05/21 [Rx] Ibuprofen [Motrin] 600 mg PO Q8HR PRN #30 tab 05/05/21 [Rx] Simethicone [Gas-X] 125 mg PO AC-TID PRN #20 capsule 05/05/21 [Rx] Dextroamphetamine/Amphetamine [Adderall Xr] 25 mg PO QAM 06/29/21 [History] Follow up Appointment(s)/Referral(s): Camila Jackson MD [STAFF PHYSICIAN] - 07/19/21 Patient Instructions/Handouts: Diet for Stomach Ulcers and Gastritis (ED) Discharge Disposition: HOME SELF-CARE
[2021-06-30 10:29] VITALS: PULSE 61; RESP 16
== END 2021-06-30 10:53 | disposition home or self-care (01) ==
LOC: ORWHC2ENDO 08:12
PROVIDERS: ATTEND Surgery Plastic and Reconstructive Surgery
DX: K21.00 Gastro-esophageal reflux disease with esophagitis, without bleeding (principal); K29.50 Unspecified chronic gastritis without bleeding; K44.9 Diaphragmatic hernia without obstruction or gangrene; E66.01 Morbid (severe) obesity due to excess calories; F90.9 Attention-deficit hyperactivity disorder, unspecified type; R74.8 Abnormal levels of other serum enzymes; Z68.41 Body mass index [BMI] 40.0-44.9, adult; Z90.49 Acquired absence of other specified parts of digestive tract; Z79.899 Other long term (current) drug therapy; Z97.5 Presence of (intrauterine) contraceptive device
CPT/HCPCS: 81025; 88305; 43239; J2001; J2704

== ENCOUNTER 2021-11-04 20:14 | Emergency (ER) | payer BC ==
[2021-11-04 20:30] VITALS: TEMP 98.3
[2021-11-04] MEDS ORDERED: KETOROLAC 15 MG/ML 1 ML VIAL IM STA (21:15)
--- NOTE | 2021-11-04 21:41 | XR ---
EXAMINATION TYPE: XR forearm LT DATE OF EXAM: 11/04/2021 COMPARISON: NONE HISTORY: Pain and swelling TECHNIQUE: 2 view FINDINGS: Radius and ulna appear intact. There is subcutaneous edema over the lateral aspect of the m id radius. Elbow joint and wrist joint appear intact. IMPRESSION: Subcutaneous edema. No fracture.
--- NOTE | 2021-11-04 21:42 | XR ---
EXAMINATION TYPE: XR elbow complete LT DATE OF EXAM: 11/04/2021 COMPARISON: NONE HISTORY: Elbow pain TECHNIQUE: 3 views FINDINGS: Elbow joint spaces are normal. I see no fracture nor dislocation. There is no sign of joint effusion. IMPRESSION: Negative left elbow exam.
--- NOTE | 2021-11-04 22:11 | ED ---
Upper Extremity HPI - General Chief Complaint: Extremity Injury, Upper Stated Complaint: LT arm injury Time Seen by Provider: 11/04/21 20:56 Source: patient Mode of arrival: ambulatory - History of Present Illness Initial Comments: Patient is a 21-year-old female presenting with chief complaint of left arm pain. Patient states she was chasing her dog when she tripped and fell, landing on top of her left forearm. Patient states she heard a pop, she is now complaining of pain and swelling. She has limited range of motion secondary to pain. She has full sensation. - Related Data Home Medications Medication Instructions Recorded Confirmed levonorgestreL [Kyleena (IUD)] 1 implant VAGINAL [id number] 12/31/20 06/30/21 Anapaz 0.125 mg SL Q4H 05/03/21 06/30/21 Omeprazole 40 mg PO DAILY 05/03/21 06/30/21 ondansetron HCL [Zofran] 8 mg PO TID PRN 05/03/21 06/30/21 Dextroamphetamine/Amphetamine 25 mg PO QAM 06/29/21 06/30/21 [Adderall Xr] Previous Rx's Medication Instructions Recorded Acetaminophen Tab [Tylenol] 1,000 mg PO Q6HR PRN #30 tablet 05/05/21 Ibuprofen [Motrin] 600 mg PO Q8HR PRN #30 tab 05/05/21 Simethicone [Gas-X] 125 mg PO AC-TID PRN #20 capsule 05/05/21 Allergies Allergy/AdvReac Type Severity Reaction Status Date / Time No Known Allergies Allergy Verified 11/04/21 20:30 Review of Systems ROS Statement: Those systems with pertinent positive or pertinent negative responses have been documented in the HPI. ROS Other: All systems not noted in ROS Statement are negative. Past Medical History Past Medical History: No Reported History History of Any Multi-Drug Resistant Organisms: None Reported Past Surgical History: Appendectomy Past Anesthesia/Blood Transfusion Reactions: No Reported Reaction Past Psychological History: ADD/ADHD Smoking Status: Never smoker - Past Family History Mother History Unknown: Yes General Exam Limitations: no limitations General appearance: alert, in no apparent distress Head exam: Present: atraumatic, normocephalic, normal inspection Eye exam: Present: normal appearance, EOMI. Absent: scleral icterus, periorbital swelling Neck exam: Present: normal inspection Left Forearm Wrist exam: Present: tenderness, swelling. Absent: full ROM Neurological exam: Present: alert, oriented X3, CN II-XII intact Psychiatric exam: Present: normal affect, normal mood Skin exam: Present: warm, dry, intact, normal color. Absent: rash Course Vital Signs 11/04/21 11/04/21 20:28 22:27 Temperature 98.3 F Pulse Rate 115 H 72 Respiratory 18 16 Rate Blood Pressure 133/82 134/75 O2 Sat by Pulse 100 99 Oximetry Medical Decision Making - Medical Decision Making Patient is a 21-year-old female presenting with chief complaint of left forearm pain. Patient fell onto the left forearm today, she heard a pop and is now experiencing pain and swelling. On examination she has limited range of motion secondary to pain. She has full sensation. X-ray shows no acute fracture or dislocation. Patient is educated on supportive treatment. Roby wrap for compression is applied. Rest, ice, compress, elevate. Follow-up with PCP. Report back to ER with any new or worsening symptoms. Discussed return parameters and answered all questions. Patient conveyed verbal understanding and agreed to the plan. I discussed this case with my attending Dr. Calhoun. Disposition Clinical Impression: Forearm swelling Disposition: HOME SELF-CARE Condition: Good Instructions (If sedation given, give patient instructions): Arm Pain (ED) Additional Instructions: Take Motrin and Tylenol as needed for pain control. Rest, ice, compress, elevate for symptomatic management. Follow-up with PCP. Report back to ER with any new or worsening symptoms. Is patient prescribed a controlled substance at d/c from ED?: No Referrals: Noel Mitchell MD [Primary Care Provider] - 1-2 days Time of Disposition: 22:11
[2021-11-04 22:28] VITALS: BP 134/75; PULSE 72; RESP 16
== END 2021-11-04 22:28 | disposition home or self-care (01) ==
LOC: EC 20:14
DX: M79.89 Other specified soft tissue disorders (principal)
CPT/HCPCS: 73080; 73090; 99283; 96372; J1885

== ENCOUNTER → 2022-11-28 | Outpatient (CLI) | payer BC | LOC: CPPFTMAIN 17:20 | PROVIDERS: ATTEND Family Medicine | DX: R05.9 Cough, unspecified (principal) | CPT/HCPCS: 94060; 94726; 94729 ==

== ENCOUNTER 2023-08-17 14:24 | Emergency (ER) | payer BC ==
[2023-08-17 15:06] VITALS: RESP 18; TEMP 98.3
--- NOTE | 2023-08-17 15:06 | ED ---
Neuro HPI - General Source: patient, RN notes reviewed Mode of arrival: ambulatory Limitations: no limitations <Arcelia Marte - Last Filed: 08/17/23 15:05> - General Source: RN notes reviewed - History of Present Illness Is the patient presenting with stroke symptoms?: No <Soumya Posey - Last Filed: 08/17/23 18:14> - General Chief Complaint: Neuro Symptoms/Deficit Stated Complaint: L sided numbness-sent by PCP Time Seen by Provider: 08/17/23 15:05 - History of Present Illness Initial Comments: Quick note: 23-year-old female presenting to the ER with a chief complaint of left-sided pain/numbness/tingling. She reports this been going on for approximately 5 days. She states pain is now increasing that makes it difficult for her to move. Patient was sent here by primary care physician. (Arcelia Trejo) 23-year-old female with no significant past medical history presenting with chief complaint of left-sided numbness x 5 days. Patient reports this started suddenly 5 days ago with no injury or trauma and has been increasing in severity. Patient now reports numbness and tingling as well as pain from the left side of neck radiating down into the shoulder and left arm. Denies head injury or loss of consciousness. Denies chest pain, shortness of breath, palpitations. This has never happened before. She was sent by her PCP this morning because on exam they noticed decreased left upper extremity strength and told her she needed to have a CT of the head. (Soumya Posey) - Related Data Home Medications: Home Medications Medication Instructions Recorded Confirmed levonorgestreL [Kyleena (IUD)] 1 implant VAGINAL [id number] 12/31/20 06/30/21 Anapaz 0.125 mg SL Q4H 05/03/21 06/30/21 Omeprazole 40 mg PO DAILY 05/03/21 06/30/21 ondansetron HCL [Zofran] 8 mg PO TID PRN 05/03/21 06/30/21 Dextroamphetamine/Amphetamine 25 mg PO QAM 06/29/21 06/30/21 [Adderall Xr] Previous Rx's Medication Instructions Recorded Acetaminophen Tab [Tylenol] 1,000 mg PO Q6HR PRN #30 tablet 02/17/22 Ibuprofen [Motrin] 600 mg PO Q8HR PRN #30 tab 05/05/21 Simethicone [Gas-X] 125 mg PO AC-TID PRN #20 capsule 05/05/21 methocarbamoL [Robaxin] 500 mg PO TID PRN #15 tab 08/17/23 methylPREDNISolone Dose Pack 4 mg PO DIRECTED #1 packet 08/17/23 [Medrol Dose Pack] Allergies/Adverse Reactions: Allergies Allergy/AdvReac Type Severity Reaction Status Date / Time No Known Allergies Allergy Verified 08/17/23 14:28 Review of Systems ROS Other: All systems not noted in ROS Statement are negative. <Arcelia Marte - Last Filed: 08/17/23 15:05> ROS Other: All systems not noted in ROS Statement are negative. <Soumya Posey - Last Filed: 08/17/23 18:14> ROS Statement: Those systems with pertinent positive or pertinent negative responses have been documented in the HPI. General Exam Limitations: no limitations <Arcelia Marte - Last Filed: 08/17/23 15:05> General appearance: alert, in no apparent distress Head exam: Present: atraumatic, normocephalic, normal inspection Eye exam: Present: normal appearance, PERRL, EOMI. Absent: scleral icterus, conjunctival injection, periorbital swelling ENT exam: Present: normal exam, mucous membranes moist Neck exam: Present: normal inspection. Absent: tenderness, meningismus, lymphadenopathy Respiratory exam: Present: normal lung sounds bilaterally. Absent: respiratory distress, wheezes, rales, rhonchi, stridor Cardiovascular Exam: Present: regular rate, normal rhythm, normal heart sounds. Absent: systolic murmur, diastolic murmur, rubs, gallop, clicks GI/Abdominal exam: Present: soft, normal bowel sounds. Absent: distended, tenderness, guarding, rebound, rigid Extremities exam: Present: normal inspection, full ROM, normal capillary refill. Absent: tenderness, pedal edema, joint swelling, calf tenderness Back exam: Present: normal inspection Neurological exam: Present: alert, oriented X3, CN II-XII intact Psychiatric exam: Present: normal affect, normal mood Skin exam: Present: warm, dry, intact, normal color. Absent: rash <Soumya Posey - Last Filed: 08/17/23 18:14> - General Exam Comments Initial Comments: Visual Physical Exam Vital signs reviewed General: Well-appearing, nontoxic, no acute distress. Head: Normocephalic, atraumatic Eyes: PERRLA, EOMI ENT: Airway patent Chest: Nonlabored breathing Skin: No visual rash, normal skin tone Neuro: Alert and oriented 3 Musculoskeletal: No gross abnormalities (Arcelia Marte) Stroke MDM <Arcelia Marte - Last Filed: 08/17/23 15:05> - Lab Data Result diagrams: 08/17/23 15:29 08/17/23 15:29 - EKG Data -: EKG Interpreted by Me <Soumya Posey - Last Filed: 08/17/23 18:14> - Lab Data Lab Results 08/17/23 08/17/23 08/17/23 Range/Units 15:29 15:29 15:29 WBC 11.1 H (3.8-10.6) k/uL RBC 5.12 (3.80-5.40) m/uL Hgb 15.0 (11.4-16.0) gm/dL Hct 46.5 H (34.0-46.0) % MCV 90.8 (80.0-100.0) fL MCH 29.3 (25.0-35.0) pg MCHC 32.2 (31.0-37.0) g/dL RDW 12.6 (11.5-15.5) % Plt Count 224 (150-450) k/uL MPV 7.9 Neutrophils % 64 % Lymphocytes % 25 % Monocytes % 5 % Eosinophils % 4 % Basophils % 1 % Neutrophils # 7.2 (1.3-7.7) k/uL Lymphocytes # 2.7 (1.0-4.8) k/uL Monocytes # 0.6 (0-1.0) k/uL Eosinophils # 0.4 (0-0.7) k/uL Basophils # 0.1 (0-0.2) k/uL Sodium (137-145) mmol/L Potassium (3.5-5.1) mmol/L Chloride (98-107) mmol/L Carbon Dioxide (22-30) mmol/L Anion Gap mmol/L BUN (7-17) mg/dL Creatinine (0.52-1.04) mg/dL Est GFR (CKD-EPI)AfAm (>60 ml/min/1.73 sqM) Est GFR (CKD-EPI)NonAf (>60 ml/min/1.73 sqM) Glucose (74-99) mg/dL Calcium (8.4-10.2) mg/dL Magnesium (1.6-2.3) mg/dL Total Bilirubin (0.2-1.3) mg/dL AST (14-36) U/L ALT (4-34) U/L Alkaline Phosphatase (38-126) U/L Troponin I (0.000-0.034) ng/mL Total Protein (6.3-8.2) g/dL Albumin (3.5-5.0) g/dL Urine Color Light Yellow Urine Appearance Clear (Clear) Urine pH 6.0 (5.0-8.0) Ur Specific [place] 1.023 (1.001-1.035) Urine Protein Negative (Negative) Urine Glucose (UA) Negative (Negative) Urine Ketones Negative (Negative) Urine Blood Negative (Negative) Urine Nitrite Negative (Negative) Urine Bilirubin Negative (Negative) Urine Urobilinogen <2.0 (<2.0) mg/dL Ur Leukocyte Esterase Negative (Negative) Urine HCG, Qual Not Detected (Not Detectd) 08/17/23 08/17/23 Range/Units 15:29 16:15 WBC (3.8-10.6) k/uL RBC (3.80-5.40) m/uL Hgb (11.4-16.0) gm/dL Hct (34.0-46.0) % MCV (80.0-100.0) fL MCH (25.0-35.0) pg MCHC (31.0-37.0) g/dL RDW (11.5-15.5) % Plt Count (150-450) k/uL MPV Neutrophils % % Lymphocytes % % Monocytes % % Eosinophils % % Basophils % % Neutrophils # (1.3-7.7) k/uL Lymphocytes # (1.0-4.8) k/uL Monocytes # (0-1.0) k/uL Eosinophils # (0-0.7) k/uL Basophils # (0-0.2) k/uL Sodium 139 (137-145) mmol/L Potassium 4.1 (3.5-5.1) mmol/L Chloride 104 (98-107) mmol/L Carbon Dioxide 29 (22-30) mmol/L Anion Gap 6 mmol/L BUN 14 (7-17) mg/dL Creatinine 0.59 (0.52-1.04) mg/dL Est GFR (CKD-EPI)AfAm >90 (>60 ml/min/1.73 sqM) Est GFR (CKD-EPI)NonAf >90 (>60 ml/min/1.73 sqM) Glucose 97 (74-99) mg/dL Calcium 9.1 (8.4-10.2) mg/dL Magnesium 1.9 (1.6-2.3) mg/dL Total Bilirubin 0.5 (0.2-1.3) mg/dL AST 31 (14-36) U/L ALT 25 (4-34) U/L Alkaline Phosphatase 72 (38-126) U/L Troponin I <0.012 (0.000-0.034) ng/mL Total Protein 6.6 (6.3-8.2) g/dL Albumin 4.6 (3.5-5.0) g/dL Urine Color Urine Appearance (Clear) Urine pH (5.0-8.0) Ur Specific [place] (1.001-1.035) Urine Protein (Negative) Urine Glucose (UA) (Negative) Urine Ketones (Negative) Urine Blood (Negative) Urine Nitrite (Negative) Urine Bilirubin (Negative) Urine Urobilinogen (<2.0) mg/dL Ur Leukocyte Esterase (Negative) Urine HCG, Qual (Not Detectd) - Medical Decision Making I performed the quick note portion of this chart. Electronically signed by Arcelia Marte PA-C (Arcelia Marte) Was pt. sent in by a medical professional or institution (BRAYAN Calvert, CLINICAL PRODUCT MANAGER, urgent care, hospital, or assisted...) When possible be specific @ -Sent by PCP for CT of head Did you speak to anyone other than the patient for history (EMS, parent, family, police, friend...)? What history was obtained from this source @ -No Did you review nursing and triage notes (agree or disagree)? Why? @ -I reviewed and agree with nursing and triage notes Were old charts reviewed (outside hosp., previous admission, EMS record, old EKG, old radiological studies, urgent care reports/EKG's, assisted records)? Report findings @ -No old charts were reviewed Differential Diagnosis (chest pain, altered mental status, abdominal pain women, abdominal pain men, vaginal bleeding, weakness, fever, dyspnea, syncope, headache, dizziness, GI bleed, back pain, seizure, CVA, palpatations, mental health, musculoskeletal)? @ -Stroke, ACS, cervical radiculopathy, differential Musculoskeletal Muscular strain, contusion, ligament sprain, fracture, arthritis, septic arthritis, bursitis, cellulitis, muscle spasm, nerve compression, DVT, arterial occlusion, herpes zoster, electrolyte abnormality, tumor.... This is not meant to be in all inclusive list EKG interpreted by me (3pts min.). @ -As above X-rays interpreted by me (1pt min.). @ -None done CT interpreted by me (1pt min.). @ -CT of head reveals no acute intracranial process. There is suspected prominent right perivascular space and right basal ganglia versus remote injury U/S interpreted by me (1pt. min.). @ -None done What testing was considered but not performed or refused? (CT, X-rays, U/S, labs)? Why? @ -None What meds were considered but not given or refused? Why? @ -None Did you discuss the management of the patient with other professionals (professionals i.e. , PA, CLINICAL PRODUCT MANAGER, lab, RT, psych nurse, social economist, bessemer bottom maker, teacher, chief mechanical officer, community case manager)? Give summary @ -No Was smoking cessation discussed for >3mins.? @ -No Was critical care preformed (if so, how long)? @ -No Were there social determinants of health that impacted care today? How? (Homelessness, low income, unemployed, alcoholism, drug addiction, transportation, low edu. Level, literacy, decrease access to med. care, fci, rehab)? @ -No Was there de-escalation of care discussed even if they declined (Discuss DNR or withdrawal of care, Hospice)? DNR status @ -No What co-morbidities impacted this encounter? (DM, HTN, Smoking, COPD, CAD, Cancer, CVA, ARF, Chemo, Hep., AIDS, mental health diagnosis, sleep apnea, morbid obesity)? @ -None Was patient admitted / discharged? Hospital course, mention meds given and route, prescriptions, significant lab abnormalities, going to OR and other pertinent info. @ -Patient was discharged. Patient was seen and evaluated for left arm numbness and pain x 5 days. Patient has no significant past medical history, no injury or trauma. Neuro examination was unremarkable. CT of head was negative for acute intracranial process. EKG revealed normal sinus rhythm with no ST changes. All lab work was unremarkable. Discussed with patient there are are no signs of emergent etiology causing symptoms upon examination today. Discussed possibility of cervical radiculopathy. Prescribed Medrol Dose gerson and Robaxin for pain. Strict return/alarm symptoms discussed with patient in detail and patient shows understanding and agrees to plan. Supportive care discussed. Advise close follow-up with PCP. Discharged in stable condition. Case discussed with Dr. Clement Undiagnosed new problem with uncertain prognosis? @ -No Drug Therapy requiring intensive monitoring for toxicity (Heparin, Nitro, Insulin, Cardizem)? @ -No Were any procedures done? @ -No Diagnosis/symptom? @ -Left upper extremity numbness Acute, or Chronic, or Acute on Chronic? @ -Acute Uncomplicated (without systemic symptoms) or Complicated (systemic symptoms)? @ -Uncomplicated Side effects of treatment? @ -No Exacerbation, Progression, or Severe Exacerbation? @ -No Poses a threat to life or bodily function? How? (Chest pain, [place], [place], pneumonia, PE, COPD, DKA, ARF, appy, cholecystitis, CVA, Diverticulitis, Homicidal, Dolan icidal, threat to staff... and all critical care pts) @ -Low likelihood (Soumya Posey) 08/17/23 17:53 EKG reveals normal sinus rhythm with no ST changes. Ventricular rate 75 bpm, TX interval 133, QRS duration 86, QT/QTc 392/421 (Soumya Posey) Past Medical History Past Medical History: No Reported History History of Any Multi-Drug Resistant Organisms: None Reported Past Surgical History: Appendectomy Past Anesthesia/Blood Transfusion Reactions: No Reported Reaction Past Psychological History: ADD/ADHD Smoking Status: Never smoker - Past Family History Mother History Unknown: Yes <Arcelia Marte - Last Filed: 08/17/23 15:05> Course Vital Signs 08/17/23 14:25 Temperature 98.3 F Pulse Rate 85 Respiratory 18 Rate Blood Pressure 117/77 O2 Sat by Pulse 100 Oximetry Disposition <JorgerajaniArcelia - Last Filed: 08/17/23 15:05> Is patient prescribed a controlled substance at d/c from ED?: No Time of Disposition: 18:06 <KalpeshSoumya - Last Filed: 08/17/23 18:14> Clinical Impression: Left upper extremity numbness Disposition: HOME SELF-CARE Condition: Stable Instructions (If sedation given, give patient instructions): Cervical Radiculopathy (ED) Additional Instructions: Please follow-up with PCP for further evaluation. Please return to the Emergency Department if symptoms worsen or any other concerns. Prescriptions: methylPREDNISolone Dose Pack [Medrol Dose Pack] 4 mg PO DIRECTED #1 packet methocarbamoL [Robaxin] 500 mg PO TID PRN #15 tab PRN Reason: muscle spasms Referrals: Noel Mitchell MD [Primary Care Provider] - 1-2 days
[2023-08-17 15:59] LABS: Basophils # (A) 0.1 k/uL (0-0.2); Basophils % (A) 1 %; Eosinophils # (A) 0.4 k/uL (0-0.7); Eosinophils % (A) 4 %; HCT 46.5 % (34.0-46.0); Lymphocytes # (A) 2.7 k/uL (1.0-4.8); Lymphocytes % (A) 25 %; MCH 29.3 pg (25.0-35.0); MCHC 32.2 g/dL (31.0-37.0); MCV 90.8 fL (80.0-100.0); Mean Platelet Volume 7.9; Monocytes # (A) 0.6 k/uL (0-1.0); Monocytes % (A) 5 %; Neutrophils # (A) 7.2 k/uL (1.3-7.7); Neutrophils % (A) 64 %; Platelet Count 224 k/uL (150-450); RBC 5.12 m/uL (3.80-5.40); RDW 12.6 % (11.5-15.5); WBC 11.1 k/uL (3.8-10.6)
[2023-08-17 16:07] LABS: ALT 25 U/L (4-34); AST 31 U/L (14-36); African American GFR (CKD) >90 (>60 ml/min/1.73 sqM); Albumin 4.6 g/dL (3.5-5.0); Alkaline Phosphatase 72 U/L (38-126); Anion Gap 6 mmol/L; Blood Urea Nitrogen 14 mg/dL (7-17); Calcium 9.1 mg/dL (8.4-10.2); Carbon Dioxide 29 mmol/L (22-30); Chloride 104 mmol/L (98-107); Glucose 97 mg/dL (74-99); Magnesium 1.9 mg/dL (1.6-2.3); Non-African American GFR(CKD) >90 (>60 ml/min/1.73 sqM); Potassium 4.1 mmol/L (3.5-5.1); Sodium 139 mmol/L (137-145); Total Bilirubin 0.5 mg/dL (0.2-1.3); Total Protein 6.6 g/dL (6.3-8.2)
[2023-08-17 16:08] LABS: Appearance,Urine Clear (Clear); Bilirubin,Urine Negative (Negative); Blood,Urine Negative (Negative); Color,Urine Light Yellow; Glucose,Urine (UA) Negative (Negative); Ketones,Urine Negative (Negative); Leukocyte Esterase,Urine Negative (Negative); Nitrite,Urine Negative (Negative); Protein,Urine Negative (Negative); Specific Gravity,Urine 1.023 (1.001-1.035); Urobilinogen,Urine <2.0 mg/dL (<2.0)
--- NOTE | 2023-08-17 17:08 | CT ---
EXAMINATION TYPE: CT brain wo con CT DLP: 1083.4 mGycm, Automated exposure control for dose reduction was used. DATE OF EXAM: 08/17/2023 4:43 PM COMPARISON: 03/31/2020. CLINICAL INDICATION:Female, 23 years old with history of left sided numbness, Left sided numbness. TECHNIQUE: Brain: Axial CT images of the brain were obtained with coronal and sagittal reformats created and rev iewed. Contrast used: None. Oral contrast used: None. FINDINGS: Brain: Extra-axial spaces: No abnormal extra-axial fluid collections. Ventricular system: Within normal limits Cerebral parenchyma: Prominent right basal ganglia perivascular space similar to 09/05/2020. No acute intraparenchymal hemorrhage or mass effect. The bernstein-white junction is well differentiated. Cerebellum: Unremarkable. Mass effect: No evidence of midline shift. Intracranial vasculature: unremarkable Soft tissues: Normal. Calvarium/osseous structures: No depressed skull fracture. Paranasal sinuses and mastoid air cells: Mild scattered paranasal sinus disease. Visualized orbits: Orbital contents are intact. IMPRESSION: 1. No acute intracranial process. 2. Suspected prominent right perivascular space in the right basal ganglia versus remote injury.
[2023-08-17 18:58] VITALS: BP 136/81; PULSE 82
== END 2023-08-17 18:18 | disposition home or self-care (01) ==
LOC: EC 14:24
DX: R20.0 Anesthesia of skin (principal)
CPT/HCPCS: 36415; 70450; 80053; 81003; 81025; 83735; 84484; 85025; 93005; 99284

== ENCOUNTER → 2023-10-08 | Outpatient (CLI) | payer BC ==
--- NOTE | 2023-10-08 14:06 | MR ---
MRI BRAIN/CERVICAL SPINE: CLINICAL HISTORY: Neck pain/stiffness, numbness/tingling/weakness in left upper extremity. TECHNIQUE: Multiplanar, multisequence imaging of the brain and cervical spine is performed without th e administration of contrast. COMPARISON: CT brain 08/17/2023, CT brain C-spine 03/31/2020 FINDINGS: Susceptibility artifact from left ear piercing is identified. The bernstein-white junctions, ventricular system, and cisterns appear unremarkable. Prominent perivascula r space within the right basal ganglia. No cerebral parenchymal FLAIR signal abnormality identified. Diffusion-weighted imaging shows no evidence of restricted diffusion. The susceptibility weighted hien ges do not reveal any evidence for micro-hemorrhage. The bone marrow signal is within normal limits. Bilateral mastoid effusions. The paranasal sinuses an d globes are unremarkable. There is several bilateral T2 hyperintense ovoid lesions within both visua lized parotid glands with the largest on the left measuring up to 1 cm and largest on the right measu ring up to 0.7 cm. Sagittal images of the cervical spine show the craniocervical junction to appear within normal limits . The cervical and upper thoracic spinal cord is normal in course, caliber, and signal. No spondylol isthesis. Straightening of the cervical spine which may be due to patient position versus muscle spas m. The vertebral body and intravertebral disk heights are normal. The bone marrow signal intensity is within normal limits. Axial images show there is no significant focal disk disease, spinal canal stenosis, neural foraminal narrowing, or spinal cord compromise at any cervical level. Several mildly prominent bilateral neck lymph nodes identified. IMPRESSION: 1. No evidence intracranial mass or subacute/subacute infarct. 2. No evidence of disc herniation or significant spinal canal stenosis. No neuroforaminal stenosis. 3. Several lesions are identified within the bilateral parotid glands with the largest measuring up to 1 cm. May represent intraparotid lymph nodes versus other etiologies. Further evaluation with ultr asound recommended. 4. Bilateral mastoid effusions. Correlate clinically for mastoiditis.
== END | disposition home or self-care (01) ==
LOC: RADMRIMAIN 07:02
PROVIDERS: ATTEND Family Medicine
DX: R51.9 Headache, unspecified (principal); M54.12 Radiculopathy, cervical region; R20.0 Anesthesia of skin; R53.1 Weakness; R20.2 Paresthesia of skin
CPT/HCPCS: 70551; 72141

== ENCOUNTER → 2023-11-21 | Outpatient (CLI) | payer BC ==
--- NOTE | 2023-11-24 09:52 | US ---
EXAMINATION TYPE: US thyroid st tissue head/neck DATE OF EXAM: 11/21/2023 COMPARISON: NONE CLINICAL INDICATION: Female, 23 years old with history of R22.1 MASS OF PAROTID; GLAND SIZE: Right Lobe: 4.4 x 1.6 x 1.8 cm Overall Parenchyma: homogeneous Left Lobe: 4.6 x 1.2 x 1.8 cm Overall Parenchyma: homogeneous Isthmus Thickness: NA cm NODULES RIGHT: # of nodules measured on right: 0 LEFT: # of nodules measured on left: 0 Bilateral neck scanned Largest lymph node lateral right neck, submandibular = 2.9 x 0.7 x 1.7 cm Largest lymph node lateral left neck, submandibular = 2.5 x 0.9 x 1.6 cm IMPRESSION: 1. No thyroid nodules. 2. Lymph nodes in the neck history. Given patient's age is likely reactive. There is concern for oth er pathologies CT neck with IV contrast is recommended.
== END | disposition home or self-care (01) ==
LOC: RADUSWWP 14:38
PROVIDERS: ATTEND Otolaryngology Facial Plastic Surgery
DX: R22.1 Localized swelling, mass and lump, neck (principal)
CPT/HCPCS: 76536

== ENCOUNTER 2024-06-16 19:20 | Emergency (ER) | payer BC ==
--- NOTE | 2024-06-16 19:26 | ED ---
Nausea/Vomiting/Diarrhea HPI - General Chief complaint: Nausea/Vomiting/Diarrhea Stated complaint: poss overdose Time Seen by Provider: 06/16/24 19:26 Source: patient, RN notes reviewed Mode of arrival: ambulatory Limitations: no limitations - History of Present Illness Initial comments: This is a 23-year-old female with a history of hypothyroidism presenting to emergency department for complaint of nausea, vomiting, diarrhea and diffuse abdominal pain. Patient states that symptoms started yesterday evening after she accidentally took an additional dose of her prescribed Ozempic. She denies hematochezia, melena, fevers, chills, difficulty breathing, rhinorrhea, cough, congestion. Denies urinary symptoms. Previous cholecystectomy and appendectom y. States that she has been taking Ozempic since March to aid with weight loss. - Related Data Home Medications Medication Instructions Recorded Confirmed levonorgestreL [Kyleena (IUD)] 1 implant VAGINAL [id number] 12/31/20 06/30/21 Anapaz 0.125 mg SL Q4H 05/03/21 06/30/21 Omeprazole 40 mg PO DAILY 05/03/21 06/30/21 ondansetron HCL [Zofran] 8 mg PO TID PRN 05/03/21 06/30/21 Dextroamphetamine/Amphetamine 25 mg PO QAM 06/29/21 06/30/21 [Adderall Xr] Previous Rx's Medication Instructions Recorded Acetaminophen Tab [Tylenol] 1,000 mg PO Q6HR PRN #30 tablet 05/05/21 Ibuprofen [Motrin] 600 mg PO Q8HR PRN #30 tab 05/05/21 Simethicone [Gas-X] 125 mg PO AC-TID PRN #20 capsule 05/05/21 methocarbamoL [Robaxin] 500 mg PO TID PRN #15 tab 08/17/23 methylPREDNISolone Dose Pack 4 mg PO DIRECTED #1 packet 08/17/23 [Medrol Dose Pack] Allergies Allergy/AdvReac Type Severity Reaction Status Date / Time No Known Allergies Allergy Verified 06/16/24 19:26 Review of Systems ROS Statement: Those systems with pertinent positive or pertinent negative responses have been documented in the HPI. ROS Other: All systems not noted in ROS Statement are negative. Past Medical History Past Medical History: No Reported History History of Any Multi-Drug Resistant Organisms: None Reported Past Surgical History: Appendectomy, Cholecystectomy Past Anesthesia/Blood Transfusion Reactions: No Reported Reaction Past Psychological History: ADD/ADHD Smoking Status: Never smoker Past Alcohol Use History: None Reported Past Drug Use History: None Reported - Past Family History Mother History Unknown: Yes General Exam Limitations: no limitations General appearance: alert, in no apparent distress Neck exam: Present: normal inspection. Absent: tenderness, meningismus, lymphadenopathy Respiratory exam: Present: normal lung sounds bilaterally. Absent: respiratory distress, wheezes, rales, rhonchi, stridor Cardiovascular Exam: Present: regular rate, normal rhythm, normal heart sounds. Absent: systolic murmur, diastolic murmur, rubs, gallop, clicks GI/Abdominal exam: Present: soft, tenderness (mild diffuse to deep palpation, not localized to one quadrant), normal bowel sounds. Absent: distended, guarding, rebound, rigid Extremities exam: Present: normal inspection, full ROM, normal capillary refill. Absent: tenderness, pedal edema, joint swelling, calf tenderness Back exam: Present: normal inspection. Absent: CVA tenderness (R), CVA tenderness (L) Course Vital Signs 06/16/24 19:22 Temperature 98.2 F Pulse Rate 82 Respiratory 15 Rate Blood Pressure 125/76 O2 Sat by Pulse 98 Oximetry Medical Decision Making - Medical Decision Making Was pt. sent in by a medical professional or institution ([facility], [facility], urgent care, hospital, or halfway...) When possible be specific @ -No Did you speak to anyone other than the patient for history (EMS, parent, family, police, friend...)? What history was obtained from this source @ -No Did you review nursing and triage notes (agree or disagree)? Why? @ -I reviewed and agree with nursing and triage notes Were old charts reviewed (outside hosp., previous admission, EMS record, old EKG, old radiological studies, urgent care reports/EKG's, halfway records)? Report findings @ -No old charts were reviewed Differential Diagnosis (chest pain, altered mental status, abdominal pain women, abdominal pain men, vaginal bleeding, weakness, fever, dyspnea, syncope, headache, dizziness, GI bleed, back pain, seizure, CVA, palpatations, mental health, musculoskeletal)? @ -Differential Abdominal Pain Women: Appendicitis, Cholecystitis, diverticulosis, ischemic bowel, pancreatitis, hepatitis, UTI, gastroenteritis, AAA, incarcerated hernia, bowel obstruction, constipation, inflammatory bowel, hepatitis, peptic ulcer disease, splenic i nfarction, perforated viscus, vulvitis, ovarian torsion, PID, kidney stone, placenta abruption, this is not meant to be an all-inclusive list EKG interpreted by me (3pts min.). @ -None X-rays interpreted by me (1pt min.). @ -None done CT interpreted by me (1pt min.). @ -None done U/S interpreted by me (1pt. min.). @ -None done What testing was considered but not performed or refused? (CT, X-rays, U/S, labs)? Why? @ -None What meds were considered but not given or refused? Why? @ -None Did you discuss the management of the patient with other professionals (professionals i.e. , PA, [facility], lab, RT, psych nurse, social insurance adviser, filling separator, teacher, planned giving officer, case sealer)? Give summary @ -No Was smoking cessation discussed for >3mins.? @ -No Was critical care preformed (if so, how long)? @ -No Were there social determinants of health that impacted care today? How? (Homelessness, low income, unemployed, alcoholism, drug addiction, transportation, low edu. Level, literacy, decrease access to med. care, detention, rehab)? @ -No Was there de-escalation of care discussed even if they declined (Discuss DNR or withdrawal of care, Hospice)? DNR status @ -No What co-morbidities impacted this encounter? (DM, HTN, Smoking, COPD, CAD, Cancer, CVA, ARF, Chemo, Hep., AIDS, mental health diagnosis, sleep apnea, morbid obesity)? @ -None Was patient admitted / discharged? Hospital course, mention meds given and route, prescriptions, significant lab abnormalities, going to OR and other pertinent info. @ -discharged. 23 female presenting with acute nausea vomiting after accidentally taking additional dose of Ozempic. Vitals are stable on arrival. Patient's well-appearing. There is mild tenderness to deep palpation of the diffuse abdomen with no localized tenderness. Abdomen however is soft with no signs of rebound tenderness or rigidity. She is provided with IV fluids and antiemetics. Laboratory testing reveals leukocytosis 11.0, hyponatremia 133 likely secondary to emesis. Urinalysis unremarkable. hCG negative. On reevaluation patient states that she is feeling well. She states that she does have a prescription for Zofran at home. Case discussed with Dr. Cevallos Undiagnosed new problem with uncertain prognosis? @ -No Drug Therapy requiring intensive monitoring for toxicity (Heparin, Nitro, Insulin, Cardizem)? @ -No Were any procedures done? @ -No Diagnosis/symptom? @ -acute nausea, vomiting, and diarrhea Acute, or Chronic, or Acute on Chronic? @ -acute Uncomplicated (without systemic symptoms) or Complicated (systemic symptoms)? @ -uncomplicated Side effects of treatment? @ -No Exacerbation, Progression, or Severe Exacerbation? @ -No Poses a threat to life or bodily function? How? (Chest pain, [place], [place], pneumonia, PE, COPD, DKA, ARF, appy, cholecystitis, CVA, Diverticulitis, Homicidal, Suicidal, threat to staff... and all critical care pts) @ -No - Lab Data Result diagrams: 06/16/24 19:58 06/16/24 19:58 Lab Results 06/16/24 06/16/24 06/16/24 Range/Units 19:58 19:58 21:12 WBC 11.0 H (3.8-10.6) k/uL RBC 4.68 (3.80-5.40) m/uL Hgb 13.8 (11.4-16.0) gm/dL Hct 41.1 (34.0-46.0) % MCV 87.9 (80.0-100.0) fL MCH 29.5 (25.0-35.0) pg MCHC 33.6 (31.0-37.0) g/dL RDW 12.4 (11.5-15.5) % Plt Count 245 (150-450) k/uL MPV 7.3 Neutrophils % 63 % Lymphocytes % 28 % Monocytes % 5 % Eosinophils % 3 % Basophils % 0 % Neutrophils # 6.9 (1.3-7.7) k/uL Lymphocytes # 3.0 (1.0-4.8) k/uL Monocytes # 0.5 (0-1.0) k/uL Eosinophils # 0.3 (0-0.7) k/uL Basophils # 0.0 (0-0.2) k/uL Sodium 133 L (137-145) mmol/L Potassium 3.7 (3.5-5.1) mmol/L Chloride 104 (98-107) mmol/L Carbon Dioxide 23 (22-30) mmol/L Anion Gap 6 mmol/L BUN 16 (7-17) mg/dL Creatinine 0.57 (0.52-1.04) mg/dL Est GFR (CKD-EPI)AfAm >90 (>60 ml/min/1.73 sqM) Est GFR (CKD-EPI)NonAf >90 (>60 ml/min/1.73 sqM) Glucose 83 (74-99) mg/dL Calcium 9.2 (8.4-10.2) mg/dL Total Bilirubin 0.7 (0.2-1.3) mg/dL AST 30 (14-36) U/L ALT 65 H (4-34) U/L Alkaline Phosphatase 73 (38-126) U/L Total Protein 6.3 (6.3-8.2) g/dL Albumin 4.2 (3.5-5.0) g/dL Lipase 193 (23-300) U/L Urine Color Light Yellow Urine Appearance Cloudy H (Clear) Urine pH 6.0 (5.0-8.0) Ur Specific [place] 1.032 (1.001-1.035) Urine Protein Negative (Negative) Urine Glucose (UA) Negative (Negative) Urine Ketones Negative (Negative) Urine Blood Negative (Negative) Urine Nitrite Negative (Negative) Urine Bilirubin Negative (Negative) Urine Urobilinogen <2.0 (<2.0) mg/dL Ur Leukocyte Esterase Large H (Negative) Urine RBC 29 H (0-5) /hpf Urine WBC 8 H (0-5) /hpf Ur Squamous Epith Cells 3 (0-4) /hpf Urine Bacteria Rare H (None) /hpf Urine Mucus Few H (None) /hpf Urine HCG, Qual (Not Detectd) 06/16/24 Range/Units 21:12 WBC (3.8-10.6) k/uL RBC (3.80-5.40) m/uL Hgb (11.4-16.0) gm/dL Hct (34.0-46.0) % MCV (80.0-100.0) fL MCH (25.0-35.0) pg MCHC (31.0-37.0) g/dL RDW (11.5-15.5) % Plt Count (150-450) k/uL MPV Neutrophils % % Lymphocytes % % Monocytes % % Eosinophils % % Basophils % % Neutrophils # (1.3-7.7) k/uL Lymphocytes # (1.0-4.8) k/uL Monocytes # (0-1.0) k/uL Eosinophils # (0-0.7) k/uL Basophils # (0-0.2) k/uL Sodium (137-145) mmol/L Potassium (3.5-5.1) mmol/L Chloride (98-107) mmol/L Carbon Dioxide (22-30) mmol/L Anion Gap mmol/L BUN (7-17) mg/dL Creatinine (0.52-1.04) mg/dL Est GFR (CKD-EPI)AfAm (>60 ml/min/1.73 sqM) Est GFR (CKD-EPI)NonAf (>60 ml/min/1.73 sqM) Glucose (74-99) mg/dL Calcium (8.4-10.2) mg/dL Total Bilirubin (0.2-1.3) mg/dL AST (14-36) U/L ALT (4-34) U/L Alkaline Phosphatase (38-126) U/L Total Protein (6.3-8.2) g/dL Albumin (3.5-5.0) g/dL Lipase (23-300) U/L Urine Color Urine Appearance (Clear) Urine pH (5.0-8.0) Ur Specific [place] (1.001-1.035) Urine Protein (Negative) Urine Glucose (UA) (Negative) Urine Ketones (Negative) Urine Blood (Negative) Urine Nitrite (Negative) Urine Bilirubin (Negative) Urine Urobilinogen (<2.0) mg/dL Ur Leukocyte Esterase (Negative) Urine RBC (0-5) /hpf Urine WBC (0-5) /hpf Ur Squamous Epith Cells (0-4) /hpf Urine Bacteria (None) /hpf Urine Mucus (None) /hpf Urine HCG, Qual Not Detected (Not Detectd) Disposition Clinical Impression: Nausea and vomiting Disposition: HOME SELF-CARE Condition: Good Instructions (If sedation given, give patient instructions): Acute Nausea and Vomiting (ED) Additional Instructions: Please return to the Emergency Department if symptoms worsen or any other concerns. Is patient prescribed a controlled substance at d/c from ED?: No Referrals: Noel Mitchell MD [Primary Care Provider] - 1-2 days Time of Disposition: 21:44
[2024-06-16 20:07] LABS: Basophils % (A) 0 %; Eosinophils # (A) 0.3 k/uL (0-0.7); Eosinophils % (A) 3 %; HCT 41.1 % (34.0-46.0); HGB 13.8 gm/dL (11.4-16.0); Lymphocytes % (A) 28 %; MCH 29.5 pg (25.0-35.0); MCHC 33.6 g/dL (31.0-37.0); MCV 87.9 fL (80.0-100.0); Mean Platelet Volume 7.3; Monocytes # (A) 0.5 k/uL (0-1.0); Monocytes % (A) 5 %; Neutrophils # (A) 6.9 k/uL (1.3-7.7); Neutrophils % (A) 63 %; Platelet Count 245 k/uL (150-450); RBC 4.68 m/uL (3.80-5.40); RDW 12.4 % (11.5-15.5)
[2024-06-16 20:15] LABS: ALT 65 U/L (4-34); AST 30 U/L (14-36); African American GFR (CKD) >90 (>60 ml/min/1.73 sqM); Albumin 4.2 g/dL (3.5-5.0); Alkaline Phosphatase 73 U/L (38-126); Anion Gap 6 mmol/L; Blood Urea Nitrogen 16 mg/dL (7-17); Calcium 9.2 mg/dL (8.4-10.2); Carbon Dioxide 23 mmol/L (22-30); Chloride 104 mmol/L (98-107); Glucose 83 mg/dL (74-99); Lipase 193 U/L (23-300); Non-African American GFR(CKD) >90 (>60 ml/min/1.73 sqM); Potassium 3.7 mmol/L (3.5-5.1); Sodium 133 mmol/L (137-145); Total Bilirubin 0.7 mg/dL (0.2-1.3); Total Protein 6.3 g/dL (6.3-8.2)
[2024-06-16] MEDS: SODIUM CHLORIDE 0.9% 1,000 ML IV STA (20:21)
[2024-06-16] MEDS: PANTOPRAZOLE 40 MG/10 ML VIAL IVP STA (20:21)
[2024-06-16] MEDS: KETOROLAC 15 MG/ML 1 ML VIAL IVP STA (20:22)
[2024-06-16] MEDS: ONDANSETRON 4 MG/2 ML VIAL IVP STA (20:23)
[2024-06-16 21:41] LABS: Appearance,Urine Cloudy (Clear); Bacteria,Urine Rare /hpf; Bilirubin,Urine Negative (Negative); Blood,Urine Negative (Negative); Color,Urine Light Yellow; Glucose,Urine (UA) Negative (Negative); Ketones,Urine Negative (Negative); Leukocyte Esterase,Urine Large (Negative); Mucus,Urine Few /hpf; Nitrite,Urine Negative (Negative); Protein,Urine Negative (Negative); RBC,Urine 29 /hpf (0-5); Specific Gravity,Urine 1.032 (1.001-1.035); Squamous Epithelial Cell,Urine 3 /hpf (0-4); Urobilinogen,Urine <2.0 mg/dL (<2.0); WBC,Urine 8 /hpf (0-5)
[2024-06-16 22:11] VITALS: BP 107/71; PULSE 77; RESP 16; TEMP 97.9
== END 2024-06-16 22:02 | disposition home or self-care (01) ==
LOC: EC 19:20
DX: R11.2 Nausea with vomiting, unspecified (principal); E03.9 Hypothyroidism, unspecified; Z90.49 Acquired absence of other specified parts of digestive tract
CPT/HCPCS: 36415; 80053; 83690; 85025; 81001; 81025; 99284; 96374; 96375; 96361; J2405; J1885; J2470

== ENCOUNTER → 2024-08-06 | Outpatient (CLI) | payer BC ==
--- NOTE | 2024-08-06 12:36 | CT ---
EXAMINATION TYPE: CT abdomen pelvis w con, CT lumbar spine wo con DATE OF EXAM: 08/06/2024 COMPARISON: Prior CT abdomen and pelvis February 23, 2021 CLINICAL INDICATION: Female, 23 years old with history of R10.32 LLQ PAIN S32.058A LUMBAR FX, LLQ abd ominal and lower back pain, TECHNIQUE: CT scan of the abdomen and pelvis is performed with IV Contrast, patient injected with 100 ml mL of I sovue 300., (none if empty) Oral contrast used: with Oral Contrast (none if empty) CT DLP: 2292 combined (accession [id number]), combined 2292 (accession [id number]) mGycm, Automated expos ure control for dose reduction was used. CT lumbar spine without contrast. FINDINGS: LUNG BASES: No significant abnormality is appreciated. LIVER/GB: Gallbladder is not identified presumed surgically absent. PANCREAS: No significant abnormality is seen. SPLEEN: No significant abnormality is seen. ADRENALS: No significant abnormality is seen. KIDNEYS: No significant abnormality is seen. BOWEL: Oral contrast reaches the level of the colon. No abnormal small or large bowel dilatation. Beau endix is surgically absent. Mild focal fat stranding left lower quadrant near junction of left and si gmoid colon axial image 66. No free air or well-formed fluid collection. UTERUS/ADNEXA: Anteverted uterus projects to right of midline with central metallic IUD redemonstrate d. LYMPH NODES: No greater than 1cm abdominal or pelvic lymph nodes are appreciated. OSSEOUS STRUCTURES: No significant abnormality is seen. OTHER: Tiny fat-containing umbilical hernia. Lumbar spine: There are 5 lumbar-type vertebra. Lumbar spine shows satisfactory alignment without stanley dence of acute fracture or dislocation. Vertebral body heights and disc space heights are within norm al limits. Spinal canal is grossly preserved. Paraspinal muscle bulk is maintained. IMPRESSION: 1. No acute displaced fracture in the lumbar spine. 2. Focal acute uncomplicated colitis left lower quadrant. Correlate clinically. Differential includes inflammatory and infectious etiologies. [facility], , 08/06/2024 12:34 PM
[2024-08-06 15:49] LABS: Basophils # (A) 0.04 X 10*3/uL (0.00-0.10); Basophils % (A) 0.7 %; Eosinophils # (A) 0.07 X 10*3/uL (0.04-0.35); Eosinophils % (A) 1.2 %; HCT 44.6 % (37.2-46.3); HGB 14.8 g/dL (12.0-15.0); Lymphocytes # (A) 1.79 X 10*3/uL (0.90-5.00); Lymphocytes % (A) 29.9 %; MCH 29.8 pg (27.0-32.0); MCHC 33.2 g/dL (32.0-37.0); MCV 89.7 FL (80.0-97.0); Mean Platelet Volume 10.3 FL (9.5-12.2); Monocytes # (A) 0.62 X 10*3/uL (0.20-1.00); Monocytes % (A) 10.4 %; NRBC Per 100 WBC 0 X 10*3/uL (0.00-0.01); Neutrophils # (A) 3.44 X 10*3/uL (1.80-7.70); Neutrophils % (A) 57.5 %; Platelet Count 230 X 10*3/uL (140-440); RBC 4.97 X 10*6/uL (4.10-5.20); RDW 12.5 % (11.5-14.5); WBC 5.98 X 10*3/uL (4.50-10.00)
[2024-08-06 15:56] LABS: ALT 56 U/L (8-44); AST 36 U/L (13-35); Albumin 4.4 g/dL (3.8-4.9); Albumin/Globulin Ratio 2.75 Ratio (1.60-3.17); Alkaline Phosphatase 91 U/L (41-126); BUN/Creat Ratio 19.14 Ratio (12.00-20.00); Blood Urea Nitrogen 13.4 mg/dL (9.0-27.0); Carbon Dioxide 24.9 mmol/L (21.6-31.8); Chloride 105 mmol/L (96-109); Globulin 1.6 g/dL (1.6-3.3); Glucose 91 mg/dL (70-110); Potassium 4.2 mmol/L (3.5-5.5); Sodium 141 mmol/L (135-145); Total Bilirubin 0.3 mg/dL (0.3-1.2)
== END | disposition home or self-care (01) ==
LOC: RADCTMAIN 09:31
PROVIDERS: ATTEND Family Medicine
DX: S32.058A Other fracture of fifth lumbar vertebra, initial encounter for closed fracture (principal); K52.9 Noninfective gastroenteritis and colitis, unspecified; X58.XXXA Exposure to other specified factors, initial encounter
CPT/HCPCS: 80053; 85025; 72131; 74177; 36415; Q9967